=== PATIENT | female | born 1950 | race African-American/Black ===

== ENCOUNTER 2017-05-30 23:24 | Emergency (ER) | payer MEDICARE, OTHER ==
[2017-05-31 04:11] LABS: ANION GAP 14 (5-19); BLOOD UREA NITROGEN 34 mg/dL (7-20); CALCIUM 8.5 mg/dL (8.4-10.2); CARBON DIOXIDE 28 mmol/L (22-30); CHLORIDE 102 mmol/L (98-107); CREATININE RESULT 1.91 mg/dL (0.52-1.25); GLUCOSE 166 mg/dL (75-110); POTASSIUM 3.1 mmol/L (3.6-5.0); SODIUM 143.5 mmol/L (137-145)
--- NOTE | 2017-05-31 05:02 | RADIOLOGY REPORT (SQ) ---
EXAM DESCRIPTION: ANKLE RIGHT COMPLETE COMPLETED DATE/TIME: 05/31/2017 4:28 am REASON FOR STUDY: swelling and pain COMPARISON: None. NUMBER OF VIEWS: Three views. TECHNIQUE: AP, lateral, and oblique radiographic images acquired of the right ankle. LIMITATIONS: None. FINDINGS: MINERALIZATION: Normal. BONES: No acute fracture or dislocation. No worrisome bone lesions. Moderate calcaneal enthesophyte s. JOINTS: Moderate chondrocalcinosis of the lateral malleolar joint. SOFT TISSUES: Mild diffuse swelling. OTHER: No other significant finding. IMPRESSION: Mild diffuse swelling. Moderate chondrocalcinosis. Moderate calcaneal enthesophytes. TECHNICAL DOCUMENTATION: JOB ID: [id number] [employer]- All Rights Reserved
--- NOTE | 2017-05-31 05:05 | RADIOLOGY REPORT (SQ) ---
EXAM DESCRIPTION: FOOT RIGHT COMPLETE COMPLETED DATE/TIME: 05/31/2017 4:40 am REASON FOR STUDY: swelling and pain COMPARISON: None. NUMBER OF VIEWS: Three views. TECHNIQUE: AP, lateral and oblique radiographic images acquired of the right foot. LIMITATIONS: None. FINDINGS: MINERALIZATION: Bony demineralization. BONES: No acute fracture or dislocation. No worrisome bone lesions. Tripartite tibial sesamoid. Mo derate calcaneal enthesophytes. Mild osteoarthritis of the midfoot. Mild osteoarthritis of the [place] joint. Small likely developmental deformity at the base of the right 3rd metatarsus. JOINTS: No effusions. SOFT TISSUES: Mild diffuse swelling. No foreign body. OTHER: No other significant finding. IMPRESSION: Mild swelling. Mild -moderate osteoarthritis. TECHNICAL DOCUMENTATION: JOB ID: [id number] [employer]- All Rights Reserved
[2017-05-31] MEDS ORDERED: ONDANSETRON 4 MG TAB.RAPDIS PO ONE (05:26)
[2017-05-31] MEDS ORDERED: OXYCODONE-ACETAMINOPHEN 5-325 MG TABLET PO ONE (05:26)
--- NOTE | 2017-05-31 05:31 | ER Document Report ---
ED Extremity Problem, Lower - General Chief Complaint: Ankle Swelling Stated Complaint: LEG PAIN Time Seen by Provider: 05/31/17 03:45 Notes: Patient is a 66-year-old female who comes emergency department for chief complaint of right ankle swelling and pain. She states she can walk on it but with some difficulty. She states that she has had these symptoms before, she was told it was gout. She was given an anti-inflammatory and hydrocodone at the end of last month, she states that hydrocodone makes her feel weird and she is not taking it, she took the anti-inflammatory and symptoms resolved but then they returned about 2 days ago. She denies any other symptoms including fever. She denies injury to the area. She states she has been told that she has gout and she thinks this is a gout flare. TRAVEL OUTSIDE OF THE [place] IN LAST 30 DAYS: No - Related Data Allergies/Adverse Reactions: Penicillins Allergy (Mild, Verified 05/31/17 00:00) Hives codeine [Codeine] Allergy (Verified 05/31/17 00:00) Head Tightness Past Medical History - General Information source: Patient - Social History Smoking Status: Never Smoker Chew tobacco use (# tins/day): No Frequency of alcohol use: Rare Drug Abuse: None Lives with: Family Family History: CAD, DM, Hyperlipidemia, Hypertension, Thyroid Disfunction Patient has suicidal ideation: No Patient has homicidal ideation: No - Past Medical History Cardiac Medical History: Reports: Hx Coronary Artery Disease, Hx Hypertension Denies: Hx Heart Attack Pulmonary Medical History: Reports: Hx Bronchitis, Hx Pneumonia, Hx Tuberculosis Denies: Hx Asthma, Hx COPD Neurological Medical History: Reports: Hx Seizures. Denies: Hx Cerebrovascular Accident Renal/ Medical History: Denies: Hx Peritoneal Dialysis Musculoskeltal Medical History: Reports Hx Arthritis Psychiatric Medical History: Reports: Hx Anxiety Past Surgical History: Reports: Hx Adenoidectomy, Hx Hysterectomy, Hx Thyroid Surgery - and thymus, Hx Tonsillectomy - adenoid. Denies: Hx Pacemaker - Immunizations Immunizations up to date: Yes Hx Diphtheria, Pertussis, Tetanus Vaccination: Yes Review of Systems - Review of Systems Constitutional: No symptoms reported EENT: No symptoms reported Cardiovascular: No symptoms reported Respiratory: No symptoms reported Gastrointestinal: No symptoms reported Genitourinary: No symptoms reported Female Genitourinary: No symptoms reported Musculoskeletal: See HPI Skin: No symptoms reported Hematologic/Lymphatic: No symptoms reported Neurological/Psychological: No symptoms reported Physical Exam - Vital signs Vitals: Temp Pulse Resp BP Pulse Ox 99 F 80 18 133/78 H 96 05/30/17 23:59 05/30/17 23:59 05/30/17 23:59 05/30/17 23:59 05/30/17 23:59 Interpretation: Normal - General General appearance: Appears well, Alert - HEENT Head: Normocephalic, Atraumatic Eyes: Normal Pupils: PERRL - Respiratory Respiratory status: No respiratory distress Chest status: Nontender Breath sounds: Normal Chest palpation: Normal - Cardiovascular Rhythm: Regular Heart sounds: Normal auscultation Murmur: No - Abdominal Inspection: Normal Distension: No distension Bowel sounds: Normal Tenderness: Nontender Organomegaly: No organomegaly - Back Back: Normal, Nontender - Extremities General upper extremity: Normal inspection, Nontender, Normal color, Normal ROM , Normal temperature General lower extremity: Other - There is some soft tissue swelling around the lateral malleolus and dorsal aspect of the right foot. No erythema, abnormal heat, or severe tenderness to the area. Patient can bear weight on the foot. Normal distal neurovascular exam. Normal lower extremity exam otherwise. - Neurological Neuro grossly intact: Yes Cognition: Normal Orientation: AAOx4 [place] Coma Scale Eye Opening: Spontaneous Say Coma Scale Verbal: Oriented [place] Coma Scale Motor: Obeys Commands Say Coma Scale Total: 15 Speech: Normal Motor strength normal: LUE, RUE, LLE, RLE Sensory: Normal - Psychological Associated symptoms: Normal affect, Normal mood - Skin Skin Temperature: Warm Skin Moisture: Dry Skin Color: Normal Course - Re-evaluation Re-evalutation: Laboratory workup does not suggest an acute gouty flare, uric acid is actually elevated slightly. BMP unfortunately shows low potassium and creatinine that is elevated at 1.91. I suspect this is from patient's recent anti-inflammatory use. Patient was requesting additional anti-inflammatory medication, I explained that I will provide her with pain medication but she cannot take anti- inflammatory medications now, she needs to drink plenty of fluids and have her kidney function rechecked in a close follow-up. Her examination does not suggest gout, the area is not hot or red, it is swollen but it appears to be from arthritis. X-ray imaging supportive of this. Provided with reports, recommendations, orthopedic referral, follow-up recommendations and return precautions. Patient states understanding and agreement. - Vital Signs Vital signs: Temp Pulse Resp BP Pulse Ox 98.7 F 89 18 136/84 H 93 05/31/17 05:57 05/31/17 05:57 05/31/17 05:57 05/31/17 05:57 05/31/17 05:47 - Laboratory Result Diagrams: 05/31/17 01:40 Laboratory results interpreted by me: 05/31/17 05/31/17 01:40 01:40 Potassium 3.1 L BUN 34 H Creatinine 1.91 H Est GFR ( Amer) 32 L Est GFR (Non-Af Amer) 26 L Glucose 166 H Uric Acid 9.0 H Discharge - Discharge Clinical Impression: Right ankle swelling Condition: Stable Disposition: HOME, SELF-CARE Additional Instructions: Your imaging shows degenerative changes. Ice and elevate your foot, take the pain medication as prescribed. Take the stool softener if you take the pain medication to avoid constipation. You may need to be evaluated and treated by orthopedics, see referral. See the reports given today. Your kidney functioning is elevated. Stop all anti-inflammatories for now (i.e. ibuprofen), please have this rechecked in the next 3-7 days with your primary care provider. Your creatinine today is 1.91, your GFR is 32. Your potassium is also slightly low. This could be from your medications, possibly from diet. Increase potassium in your diet and have this rechecked as well. Return to the ED for any concerning or worsening symptoms -increased swelling, fever, or any other concerning symptoms. Prescriptions: Morphine Sulfate [Morphine Ir 15 Mg Tablet] 15 mg PO Q4HP PRN #15 tablet PRN Reason: Docusate Sodium [Colace 100 mg Capsule] 100 mg PO DAILY #30 capsule Referrals: DANIA LOERA MD [ACTIVE STAFF] - Follow up as needed
[2017-05-31 05:59] VITALS: BP 136/84
== END 2017-05-31 05:58 | disposition home or self-care (01) ==
LOC: ER 23:24
DX: M25.471 Effusion, right ankle (principal); I25.10 Atherosclerotic heart disease of native coronary artery without angina pectoris; I10 Essential (primary) hypertension; Z90.710 Acquired absence of both cervix and uterus; Z88.0 Allergy status to penicillin; Z88.6 Allergy status to analgesic agent
CPT/HCPCS: 99284; 36415; 84550; 80048; 73610; 73630; A9270 ×2; S0119

== ENCOUNTER → 2017-08-11 | Outpatient (CLI) | payer MEDICARE, OTHER ==
[2017-08-11 12:20] LABS: ABSOLUTE EOSINOPHILS # (AUTO) 0.1 10^3/uL (0.0-0.6); ABSOLUTE LYMPHOCYTES (AUTO) 1.8 10^3/uL (0.5-4.7); ABSOLUTE MONOCYTES (AUTO) 0.3 10^3/uL (0.1-1.4); ABSOLUTE NEUT (AUTO) 2.1 10^3/uL (1.7-8.2); BASOPHILS % (AUTO) 0.7 % (0-2); EOSINOPHILS % (AUTO) 2.4 % (0-6); HEMATOCRIT 36.3 % (36.0-47.0); HEMOGLOBIN 12.5 g/dL (12.0-15.5); HGB HCT DIFFERENCE 1.2; LYMPHOCYTES % (AUTO) 41.6 % (13-45); MEAN CORPUSCULAR HEMOGLOBIN 28.7 pg (27.0-33.4); MEAN CORPUSCULAR HGB CONC 34.3 g/dL (32.0-36.0); MEAN CORPUSCULAR VOLUME 84 fl (80-97); MONOCYTES % (AUTO) 7.3 % (3-13); RED BLOOD COUNT 4.34 10^6/uL (3.72-5.28); RED CELL DISTRIBUTION WIDTH 14.9 % (11.5-14.0); WHITE BLOOD COUNT 4.3 10^3/uL (4.0-10.5)
[2017-08-11 12:30] LABS: APPEARANCE,URINE CLEAR; BILIRUBIN,URINE NEGATIVE (NEGATIVE); GLUCOSE, URINE NEGATIVE (NEGATIVE); KETONES,URINE NEGATIVE (NEGATIVE); LEUKOCYTE ESTERASE,URINE NEGATIVE (NEGATIVE); NITRITE,URINE NEGATIVE (NEGATIVE); PROTEIN,URINE NEGATIVE (NEGATIVE); URINE SPECIFIC GRAVITY 1.009; UROBILINOGEN,URINE NEGATIVE mg/dL (<2.0)
[2017-08-11 12:40] LABS: HYALINE CASTS, URINE 0-1 /LPF
[2017-08-11 12:43] LABS: ALBUMIN 4.2 g/dL (3.5-5.0); ANION GAP 11 (5-19); BLOOD UREA NITROGEN 21 mg/dL (7-20); CALCIUM 9.2 mg/dL (8.4-10.2); CARBON DIOXIDE 30 mmol/L (22-30); CHLORIDE 100 mmol/L (98-107); CHOLESTEROL 218.33 mg/dL (0-200); CREATININE RESULT 1.18 mg/dL (0.52-1.25); Direct HDL 37 mg/dL (>40); GLUCOSE 95 mg/dL (75-110); PHOSPHORUS 4.1 mg/dL (2.5-4.5); POTASSIUM 3.6 mmol/L (3.6-5.0); SODIUM 140.6 mmol/L (137-145); TRIGLYCERIDES 386 mg/dL (<150); URIC ACID 8.8 mg/dL (2.5-7.5)
[2017-08-11 12:50] LABS: URINE CREATININE 73.4 mg/dL (15-278); URINE PROTEIN 8.9 mg/dL (<12)
[2017-08-11 12:53] LABS: DIRECT LDL 30 mg/dL (<100)
[2017-08-11 12:57] LABS: VLDL CHOLESTEROL 77.2 mg/dL (10-31)
== END ==
LOC: OD 10:35
PROVIDERS: ATTEND Internal Medicine Nephrology
DX: N17.9 Acute kidney failure, unspecified (principal); N18.9 Chronic kidney disease, unspecified; E55.9 Vitamin D deficiency, unspecified
CPT/HCPCS: 36415; 80048; 80061; 81001; 82040; 82306; 82570; 83970; 84100; 84156; 84550; 85025

== ENCOUNTER → 2018-01-01 | Outpatient (CLI) | payer MEDICARE, OTHER ==
[2018-01-01 13:53] LABS: ANION GAP 15 (5-19); BLOOD UREA NITROGEN 24 mg/dL (7-20); CALCIUM 8.4 mg/dL (8.4-10.2); CARBON DIOXIDE 29 mmol/L (22-30); CHLORIDE 99 mmol/L (98-107); GLUCOSE 146 mg/dL (75-110); POTASSIUM 3.2 mmol/L (3.6-5.0); SODIUM 143.4 mmol/L (137-145)
== END ==
LOC: OD 12:45
PROVIDERS: ATTEND Internal Medicine Nephrology
DX: N18.3 Chronic kidney disease, stage 3 (moderate) (principal)
CPT/HCPCS: 36415; 80048

== ENCOUNTER 2018-04-09 20:33 | Emergency (ER) | payer MEDICARE, OTHER ==
--- NOTE | 2018-04-09 21:12 | ER Document Report ---
ED General - General Chief Complaint: Weakness Stated Complaint: ELBOW PAIN/WEAKNESS Time Seen by Provider: 04/09/18 21:01 Notes: Patient is a 67-year-old female comes emergency department for chief complaint of about 1.5 weeks of intermittent symptoms of swelling in her legs and feet on both sides, tingling sensation in her hands, she states she had a tingling sensation in her lips and throat earlier but this resolved. She also reports ongoing pains in her right elbow that she wants an x-ray for. She is uncertain of injury. She denies fever or chills, shortness of breath, chest pain, dizziness, passing out. She denies any current symptoms except for swelling in her lower extremities and pain in her right elbow. She just had medication adjustments were she was placed on Lasix and spironolactone for lower extremity swelling, she also was placed on amlodipine, she was taken off of HCTZ, she continues to take valsartan. TRAVEL OUTSIDE OF THE [place] IN LAST 30 DAYS: No - Related Data Allergies/Adverse Reactions: Penicillins Allergy (Mild, Verified 05/31/17 00:00) Hives codeine [Codeine] Allergy (Verified 05/31/17 00:00) Head Tightness Past Medical History - General Information source: Patient - Social History Smoking Status: Never Smoker Frequency of alcohol use: None Drug Abuse: None Lives with: Family Family History: CAD, DM, Hyperlipidemia, Hypertension, Thyroid Disfunction - Past Medical History Cardiac Medical History: Reports: Hx Coronary Artery Disease, Hx Hypertension Denies: Hx Heart Attack Pulmonary Medical History: Reports: Hx Bronchitis, Hx Pneumonia, Hx Tuberculosis Denies: Hx Asthma, Hx COPD Neurological Medical History: Reports: Hx Seizures. Denies: Hx Cerebrovascular Accident Renal/ Medical History: Denies: Hx Peritoneal Dialysis Musculoskeletal Medical History: Reports Hx Arthritis Psychiatric Medical History: Reports: Hx Anxiety Past Surgical History: Reports: Hx Adenoidectomy, Hx Hysterectomy, Hx Thyroid Surgery - and thymus, Hx Tonsillectomy - adenoid. Denies: Hx Pacemaker - Immunizations Immunizations up to date: Yes Hx Diphtheria, Pertussis, Tetanus Vaccination: Yes Review of Systems - Review of Systems Constitutional: No symptoms reported EENT: No symptoms reported Cardiovascular: See HPI Respiratory: No symptoms reported Gastrointestinal: No symptoms reported Genitourinary: No symptoms reported Female Genitourinary: No symptoms reported Musculoskeletal: See HPI Skin: No symptoms reported Hematologic/Lymphatic: No symptoms reported Neurological/Psychological: No symptoms reported Physical Exam - Vital signs Vitals: Temp Pulse Resp BP Pulse Ox 98.5 F 70 16 175/92 H 96 04/09/18 20:43 04/09/18 20:43 04/09/18 20:43 04/09/18 20:43 04/09/18 20:43 - Notes Notes: GENERAL: Alert, interacts well. No acute distress. HEAD: Normocephalic, atraumatic. EYES: Pupils equal, round, and reactive to light. Extraocular movements intact. ENT: Oral mucosa moist, tongue midline. NECK: Full range of motion. Supple. Trachea midline. LUNGS: Clear to auscultation bilaterally, no wheezes, rales, or rhonchi. No respiratory distress. HEART: Regular rate and rhythm. No murmur ABDOMEN: Soft, non-tender. Non-distended. Bowel sounds present in all 4 quadrants. EXTREMITIES: Moves all 4 extremities spontaneously. Mild tenderness with palpation over the right medial elbow, no swelling, erythema, or other abnormality noted. Full range of motion of the elbow. Normal distal neurovascular exam. Bilateral lower extremity edema at the distal tibias and over the dorsum of both feet. Normal lower extremity exam otherwise. BACK: no cervical, thoracic, lumbar midline tenderness. No saddle anesthesia, normal distal neurovascular exam. NEUROLOGICAL: Alert and oriented x3. Normal speech. [cranial nerves II through XII grossly intact]. PSYCH: Normal affect, normal mood. SKIN: Warm, dry, normal turgor. No rashes or lesions noted. Course - Re-evaluation Re-evalutation: Patient is hypertensive but does not have a headache, chest pain, or any other complaints at this time other than right elbow pain in and swollen lower extremities. There is some peripheral edema but no severe swelling, clear lungs on auscultation, no respiratory symptoms. Suspect this could be secondary to amlodipine but this is not definite. CBC generally unremarkable, chemistry shows low magnesium and low potassium, given supplementation of magnesium and small dose of potassium. X-ray of the elbow unremarkable, examination consistent with medial epicondylitis, no evidence of septic joint or concerning finding with benign exam. I discussed at length patient's blood pressure medications, symptoms, recommendations. She requests she be given details on this. She was provided with this along with follow-up instructions and return precautions. Patient and family state understanding and agreement. - Vital Signs Vital signs: Temp Pulse Resp BP Pulse Ox 98.5 F 72 18 162/76 H 98 04/09/18 20:43 04/10/18 01:57 04/10/18 01:57 04/10/18 01:57 04/10/18 01:57 - Laboratory Result Diagrams: 04/09/18 21:30 04/09/18 21:30 Laboratory results interpreted by me: 04/09/18 04/09/18 21:30 21:30 Hct 34.8 L RDW 15.1 H Potassium 3.3 L BUN 21 H Est GFR ( Amer) 52 L Est GFR (Non-Af Amer) 43 L Magnesium 1.5 L Discharge - Discharge Clinical Impression: Generalized weakness, Paresthesias, Right elbow pain Condition: Stable Disposition: HOME, SELF-CARE Additional Instructions: Your low magnesium and potassium were replaced. Your elbow x-ray is normal, you appear to have medial epicondylitis (strain, this can frequently resolve with ice, rest, time; Tylenol for pain). Your lower extremity swelling might be worsened because of amlodipine, this is a common side effect. Your electrolytes need to be rechecked soon. Discuss adjusting your medications with your provider, call them tomorrow for close follow-up. If your amlodipine is stopped you will need to have your other medications increased, possibly your valsartan, this is between you and your provider. If you no longer have the amlodipine contributing to lower extremity swelling you might not need the diuretics either. In addition to this I recommend that he wear compression stockings, especially at night, these can be found in any local drugstore. Return to the emergency department for any concerning symptoms including difficulty breathing, severe swelling, fever 100.4 greater, or any other concerning symptoms. Referrals: MARIAMA PETERSEN MD [HONORARY] - Follow up as needed
[2018-04-09 21:50] LABS: ABSOLUTE EOSINOPHILS # (AUTO) 0.1 10^3/uL (0.0-0.6); ABSOLUTE MONOCYTES (AUTO) 0.5 10^3/uL (0.1-1.4); ABSOLUTE NEUT (AUTO) 2.1 10^3/uL (1.7-8.2); BASOPHILS % (AUTO) 0.5 % (0-2); EOSINOPHILS % (AUTO) 1.9 % (0-6); HEMATOCRIT 34.8 % (36.0-47.0); HEMOGLOBIN 12.2 g/dL (12.0-15.5); MEAN CORPUSCULAR HEMOGLOBIN 29.2 pg (27.0-33.4); MEAN CORPUSCULAR VOLUME 84 fl (80-97); MONOCYTES % (AUTO) 11.1 % (3-13); PLATELET COUNT 182 10^3/uL (150-450); RED BLOOD COUNT 4.17 10^6/uL (3.72-5.28); RED CELL DISTRIBUTION WIDTH 15.1 % (11.5-14.0); SEGMENTED NEUTROPHILS % (AUTO) 44.5 % (42-78); TOTAL CELLS COUNTED % (AUTO) 100 %; WHITE BLOOD COUNT 4.7 10^3/uL (4.0-10.5)
[2018-04-09 22:00] LABS: ALANINE AMINOTRANSFERASE 24 U/L (9-52); ALBUMIN 4.1 g/dL (3.5-5.0); ALKALINE PHOSPHATASE 49 U/L (38-126); ANION GAP 14 (5-19); ASPARTATE AMINO TRANSFERASE 20 U/L (14-36); BILIRUBIN,DIRECT 0.3 mg/dL (0.0-0.4); BILIRUBIN,TOTAL 0.4 mg/dL (0.2-1.3); BLOOD UREA NITROGEN 21 mg/dL (7-20); CALCIUM 8.5 mg/dL (8.4-10.2); CARBON DIOXIDE 27 mmol/L (22-30); CHLORIDE 104 mmol/L (98-107); GLUCOSE 108 mg/dL (75-110); POTASSIUM 3.3 mmol/L (3.6-5.0); SODIUM 144.9 mmol/L (137-145); TOTAL PROTEIN 7.3 g/dL (6.3-8.2)
[2018-04-09] MEDS ORDERED: POTASSIUM CHLORIDE 10 MEQ CAPSULE.ER PO ONE (22:11)
--- NOTE | 2018-04-09 22:13 | RADIOLOGY REPORT (SQ) ---
EXAM DESCRIPTION: ELBOW RIGHT OVER 2 VIEWS COMPLETED DATE/TIME: 04/09/2018 9:23 pm REASON FOR STUDY: ? injury, sharp pains it 2 weeks days COMPARISON: None. NUMBER OF VIEWS: Four views. TECHNIQUE: AP, lateral, and both oblique radiographic images acquired of the right elbow. LIMITATIONS: None. FINDINGS: MINERALIZATION: Normal. BONES: No acute fracture or dislocation. No worrisome bone lesions. Mild osteophytes. JOINT: No effusion. SOFT TISSUES: No soft tissue swelling. No foreign body. OTHER: No other significant finding. IMPRESSION: No acute fracture. No joint effusion. TECHNICAL DOCUMENTATION: JOB ID: [id number] [employer]- All Rights Reserved Reading location - IP/workstation name: [email or web address]
[2018-04-09] MEDS: MAGNESIUM SULFATE/D5W 1 GM/100 ML RTUPB IV SCH ×2 (22:38→22:41)
[2018-04-09 22:39] LABS: APPEARANCE,URINE CLEAR; BILIRUBIN,URINE NEGATIVE (NEGATIVE); COLOR,URINE STRAW; GLUCOSE, URINE NEGATIVE (NEGATIVE); KETONES,URINE NEGATIVE (NEGATIVE); LEUKOCYTE ESTERASE,URINE NEGATIVE (NEGATIVE); NITRITE,URINE NEGATIVE (NEGATIVE); PROTEIN,URINE NEGATIVE (NEGATIVE); URINE SPECIFIC GRAVITY 1.009; UROBILINOGEN,URINE NEGATIVE mg/dL (<2.0)
[2018-04-10 01:59] VITALS: BP 162/76
== END 2018-04-10 01:58 | disposition home or self-care (01) ==
LOC: ER 20:33
DX: R53.1 Weakness (principal); M25.521 Pain in right elbow; R60.0 Localized edema; R20.2 Paresthesia of skin; I25.10 Atherosclerotic heart disease of native coronary artery without angina pectoris; I10 Essential (primary) hypertension; Z79.899 Other long term (current) drug therapy; Z88.0 Allergy status to penicillin; Z88.5 Allergy status to narcotic agent
CPT/HCPCS: 99285; 96365; 36415; 83735; 85025; 80053; 81001; 73080; J3475; A9270

== ENCOUNTER → 2018-05-16 | Outpatient (CLI) | payer MEDICARE, OTHER ==
[2018-05-16 13:39] LABS: APPEARANCE,URINE CLEAR; BILIRUBIN,URINE NEGATIVE (NEGATIVE); COLOR,URINE YELLOW; GLUCOSE, URINE NEGATIVE (NEGATIVE); KETONES,URINE NEGATIVE (NEGATIVE); LEUKOCYTE ESTERASE,URINE NEGATIVE (NEGATIVE); NITRITE,URINE NEGATIVE (NEGATIVE); PROTEIN,URINE NEGATIVE (NEGATIVE); URINE SPECIFIC GRAVITY 1.015; UROBILINOGEN,URINE NEGATIVE mg/dL (<2.0)
[2018-05-16 13:53] LABS: ABSOLUTE EOSINOPHILS # (AUTO) 0.1 10^3/uL (0.0-0.6); ABSOLUTE LYMPHOCYTES (AUTO) 1.6 10^3/uL (0.5-4.7); ABSOLUTE MONOCYTES (AUTO) 0.3 10^3/uL (0.1-1.4); ABSOLUTE NEUT (AUTO) 2.3 10^3/uL (1.7-8.2); BASOPHILS % (AUTO) 0.7 % (0-2); EOSINOPHILS % (AUTO) 2.1 % (0-6); HEMATOCRIT 35.5 % (36.0-47.0); HEMOGLOBIN 11.9 g/dL (12.0-15.5); LYMPHOCYTES % (AUTO) 36.4 % (13-45); MEAN CORPUSCULAR HEMOGLOBIN 27.9 pg (27.0-33.4); MEAN CORPUSCULAR HGB CONC 33.5 g/dL (32.0-36.0); MEAN CORPUSCULAR VOLUME 83 fl (80-97); MONOCYTES % (AUTO) 7.3 % (3-13); PLATELET COUNT 224 10^3/uL (150-450); RED BLOOD COUNT 4.26 10^6/uL (3.72-5.28); RED CELL DISTRIBUTION WIDTH 14.5 % (11.5-14.0); SEGMENTED NEUTROPHILS % (AUTO) 53.5 % (42-78); TOTAL CELLS COUNTED % (AUTO) 100 %; WHITE BLOOD COUNT 4.3 10^3/uL (4.0-10.5)
[2018-05-16 13:59] LABS: ALBUMIN 3.9 g/dL (3.5-5.0); ANION GAP 12 (5-19); BLOOD UREA NITROGEN 15 mg/dL (7-20); CALCIUM 8.5 mg/dL (8.4-10.2); CARBON DIOXIDE 25 mmol/L (22-30); CHLORIDE 103 mmol/L (98-107); GLUCOSE 100 mg/dL (75-110); POTASSIUM 4.2 mmol/L (3.6-5.0); SODIUM 139.5 mmol/L (137-145)
[2018-05-17 10:38] LABS: MICROALBUMIN URINE 71.6 ug/mL (Not Estab.)
== END ==
LOC: OD 12:40
PROVIDERS: ATTEND Internal Medicine Nephrology
DX: N18.3 Chronic kidney disease, stage 3 (moderate) (principal); I12.9 Hypertensive chronic kidney disease with stage 1 through stage 4 chronic kidney disease, or unspecified chronic kidney disease; E55.9 Vitamin D deficiency, unspecified
CPT/HCPCS: 36415; 80048; 81001; 82040; 82043; 82306; 82570; 83970; 84100; 85025

== ENCOUNTER 2018-06-26 00:19 | Emergency (ER) | payer MEDICARE, OTHER ==
--- NOTE | 2018-06-26 01:46 | ER Document Report ---
HPI - HPI Patient complains to provider of: [place] a fluttering in her right ear like that was a bug in her ear Onset: Just prior to arrival Onset/Duration: Sudden Quality of pain: No pain Severity: None Pain Level: Denies Associated Symptoms: Other - Fluttering in her right ear Exacerbated by: Denies Relieved by: Denies Similar symptoms previously: No Recently seen / treated by doctor: Yes - Recently saw eye doctor was told her blood pressure was high - ROS ROS below otherwise negative: Yes - CONSTITUTIONAL Constitutional: DENIES: Fever, Chills - NEURO Neurology: DENIES: Headache, Weakness, Vision blurred, Dizzinesss / Vertigo - CARDIOVASCULAR Cardiovascular: DENIES: Chest pain - RESPIRATORY Respiratory: DENIES: Trouble Breathing, Coughing - GASTROINTESTINAL Gastrointestinal: DENIES: Abdominal Pain, Nausea, Patient vomiting, Diarrhea, Constipation, Black / Bloody Stools - URINARY Urinary: DENIES: Dysuria, Urgency, Frequency - REPRODUCTIVE Reproductive: DENIES: : - MUSCULOSKELETAL Musculoskeletal: DENIES: Extremity pain, Back Pain, Neck Pain, Swelling - DERM Skin Color: Normal Skin Problems: None Past Medical History - General Information source: Patient - Social History Smoking Status: Never Smoker Cigarette use (# per day): No Chew tobacco use (# tins/day): No Smoking Education Provided: No Frequency of alcohol use: Rare Drug Abuse: None Occupation: disabled Lives with: Family Family History: CAD, DM, Hyperlipidemia, Hypertension, Thyroid Disfunction Patient has suicidal ideation: No Patient has homicidal ideation: No - Past Medical History Cardiac Medical History: Reports: Hx Coronary Artery Disease, Hx Hypertension Pulmonary Medical History: Reports: Hx Bronchitis, Hx Pneumonia, Hx Tuberculosis EENT Medical History: Reports: None Neurological Medical History: Reports: Hx Seizures - Psychogenic seizures Endocrine Medical History: Reports: Hx Hypothyroidism Renal/ Medical History: Reports: Other - Ovarian tumor that she states was not cancer Malignancy Medical History: Reports: None GI Medical History: Reports: None Musculoskeletal Medical History: Reports Hx Arthritis Skin Medical History: Reports None Psychiatric Medical History: Reports: Hx Anxiety Traumatic Medical History: Reports: None Infectious Medical History: Reports: None Past Surgical History: Reports: Hx Adenoidectomy, Hx Gynecologic Surgery - Right ovary removed due to tumors then complete hysterectomy due to tumors, Hx Hysterectomy, Hx Thyroid Surgery - and thymus, Hx Tonsillectomy - adenoid, Hx Umbilical Hernia - Immunizations Immunizations up to date: Yes Hx Diphtheria, Pertussis, Tetanus Vaccination: Yes Vertical Provider Document - CONSTITUTIONAL Agree With Documented VS: Yes - Blood pressure elevated 198/102 manually. Patient is on blood pressure med Exam Limitations: No Limitations General Appearance: WD/WN, No Apparent Distress - INFECTION CONTROL TRAVEL OUTSIDE OF THE [place] IN LAST 30 DAYS: No - HEENT HEENT: Atraumatic, Normal ENT Exam, Normocephalic Notes: Head feeling of a bug in her ear but no bug was in her ear - NECK Neck: Normal Inspection, Other - Scar from thyroidectomy - RESPIRATORY Respiratory: Breath Sounds Normal, No Respiratory Distress - CARDIOVASCULAR Cardiovascular: Regular Rate, Regular Rhythm - GI/ABDOMEN Gastrointestinal: Abdomen Soft, Abdomen Non-Tender, No Organomegaly, Normal Bowel Sounds - BACK Back: Normal Inspection - MUSCULOSKELETAL/EXTREMETIES Musculoskeletal/Extremeties: MAEW, FROM, Non-Tender - NEURO Level of Consciousness: Awake, Alert, Appropriate Course - Re-evaluation Re-evalutation: 06/26/18 02:00 Patient states she feels a fluttering in her right ear. There is no bugs in her ear. 2 drops of alcohol were placed in her ear which patient states relieved the fluttering. Patient does have a blood pressure of 198/102 manually. She states she has high blood pressure and is on blood pressure medicine and Lasix. She states she went to her eye doctor recently and they told her her blood pressure was very high and she needed to follow-up with her primary doctor. She states she has been trying to get ahold to her doctor for the last week. She has been instructed to try to call the doctor tomorrow if she could not get ahold to the doctor to go by the office and tell them she needs a follow-up appointment as soon as possible. Patient did states she took her blood pressure medicine tonight. Discharge - Discharge Clinical Impression: sensation of fluttering in ear Condition: Stable Disposition: HOME, SELF-CARE Additional Instructions: You state you felt like there was a bug in your ear fluttering There is no blood in your ear at this time. I have put 2 drops of alcohol into your ear to help with the sensation. You state you no longer have the fluttering in your ear. High Blood Pressure When your blood pressure was taken today it was elevated. Today's reading was___198/102 . Pre-hypertension/Hypertension: The patient has been informed that they may have pre-hypertension or Hypertension based on a blood pressure reading in the emergency department. I recommend that the patient call the primary care provider listed on their discharge instructions or a physician of their choice this wee to arrange follow up for further evaluation of possible pre- hypertension or Hypertension. Sometimes, stress or illness causes a temporary elevation of your blood pressure. We suggest that you get your blood pressure measured three more times during the next few days to see if this is more than a temporary abnormality. If your blood pressure is greater than 150/90 on each occasion, you must have treatment. Some simple things you can do to help are: If you have blood pressure medicine but aren't using it regularly, start taking it again. Get some aerobic exercise for at least 20 minutes on a daily basis. (See your doctor before beginning a new exercise program.) Eat a low-fat diet. Lose excess weight. Avoid salty foods and avoid adding salt to any of the foods you eat. Avoid diet pills, decongestants, "energizing" herbs, and other medicines that elevate blood pressure. If left untreated, hypertension greatly enhances your risk for developing heart disease and strokes. Please don't ignore this problem. FOLLOW-UP CARE: If you have been referred to a physician for follow-up care, call the physician s office for an appointment as you were instructed or within the next two days. If you experience worsening or a significant change in your symptoms, notify the physician immediately or return to the Emergency Department at any time for re-evaluation. Forms: Elevated Blood Pressure Referrals: NANCY BOWERS MD [ACTIVE STAFF] - Follow up as needed
[2018-06-26 01:49] VITALS: BP 198/102
== END 2018-06-26 01:55 | disposition home or self-care (01) ==
LOC: ER 00:19
DX: H93.8X1 Other specified disorders of right ear (principal); I25.10 Atherosclerotic heart disease of native coronary artery without angina pectoris; I10 Essential (primary) hypertension; Z79.899 Other long term (current) drug therapy
CPT/HCPCS: 99282

== ENCOUNTER 2018-07-01 22:46 | Emergency (ER) | payer MEDICARE, OTHER ==
[2018-07-01] MEDS ORDERED: PREDNISONE 20 MG TABLET PO ONE (23:55)
--- NOTE | 2018-07-01 23:55 | ER Document Report ---
HPI - HPI Patient complains to provider of: left foot pain Pain Level: 4 Context: Patient is a 67-year-old female presenting to the emergency department complaining of left ankle pain. Patient states is a history of gout and feels as though this is exactly like the last gout attack she had. Patient denies any trauma to that ankle. Patient states she took her allopurinol Monday which she states has not been helping. Patient also states she took colchicine on Monday which she also states is not helping. Patient states the last time she was in the emergency room for any gout flare they gave her steroids which helped a lot. Patient states that she knows her blood pressure is elevated. Patient states she has an appointment with her primary care doctor on 07/05 to address her hypertension. Patient denies headache, chest pain, weakness, dizziness. Past medical history: Gout, hypertension, hypothyroid, hyperlipidemia Medications: Losartan, Lasix, levothyroxine, clonidine, potassium, acyclovir, colchicine, allopurinol Allergies: Penicillin, codeine - CONSTITUTIONAL Constitutional: DENIES: Fever, Chills - REPRODUCTIVE Reproductive: DENIES: : - MUSCULOSKELETAL Musculoskeletal: REPORTS: Extremity pain - L ankle Past Medical History - General Information source: Patient - Social History Smoking Status: Unknown if Ever Smoked Chew tobacco use (# tins/day): No Frequency of alcohol use: None Drug Abuse: None Lives with: Family Family History: CAD, DM, Hyperlipidemia, Hypertension, Thyroid Disfunction Patient has suicidal ideation: No Patient has homicidal ideation: No - Past Medical History Cardiac Medical History: Reports: Hx Coronary Artery Disease, Hx Hypertension Denies: Hx Heart Attack Pulmonary Medical History: Reports: Hx Bronchitis, Hx Pneumonia, Hx Tuberculosis Denies: Hx Asthma, Hx COPD Neurological Medical History: Reports: Hx Seizures - Psychogenic seizures. Denies: Hx Cerebrovascular Accident Endocrine Medical History: Reports: Hx Hypothyroidism Renal/ Medical History: Denies: Hx Peritoneal Dialysis Musculoskeletal Medical History: Reports Hx Arthritis Psychiatric Medical History: Reports: Hx Anxiety Past Surgical History: Reports: Hx Adenoidectomy, Hx Gynecologic Surgery - Right ovary removed due to tumors then complete hysterectomy due to tumors, Hx Hysterectomy, Hx Thyroid Surgery - and thymus, Hx Tonsillectomy - adenoid, Hx Umbilical Hernia. Denies: Hx Pacemaker - Immunizations Immunizations up to date: Yes Hx Diphtheria, Pertussis, Tetanus Vaccination: Yes Vertical Provider Document - CONSTITUTIONAL Agree With Documented VS: Yes Notes: GENERAL: Alert, interacts well. No acute distress. HEAD: Normocephalic, atraumatic. EYES: Pupils equal, round, and reactive to light. Extraocular movements intact. ENT: Oral mucosa moist, tongue midline. NECK: Full range of motion. Supple. Trachea midline. LUNGS: Clear to auscultation bilaterally, no wheezes, rales, or rhonchi. No respiratory distress. HEART: Regular rate and rhythm. No murmur ABDOMEN: Soft, non-tender. Non-distended. Bowel sounds present in all 4 quadrants. EXTREMITIES: Moves all 4 extremities spontaneously. normal radial and dorsalis pedis pulses bilaterally. Swelling left ankle. Not erythematous, not hot to touch. PMS intact all 4 extremities. BACK: no cervical, thoracic, lumbar midline tenderness. No saddle anesthesia, normal distal neurovascular exam. NEUROLOGICAL: Alert and oriented x3. Normal speech. cranial nerves II through XII grossly intact. PSYCH: Normal affect, normal mood. SKIN: Warm, dry, normal turgor. No rashes or lesions noted. - INFECTION CONTROL TRAVEL OUTSIDE OF THE [place] IN LAST 30 DAYS: No Course - Re-evaluation Re-evalutation: Patient states she has an appointment with a new primary care provider on 2017. Patient states her old primary care provider has . Patient states she has been taking her medications as prescribed. Patient continues to deny headache, weakness, chest pain. It is normal patient is hypertensive in the emergency room, patient states her primary care provider had been changing and adding medications in attempt to lower her blood pressure. Due to patient having kidney disease NSAIDs are not indicated at this time. Will discharge with oral steroids. 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
[2018-07-02 00:10] VITALS: BP 200/110
== END 2018-07-02 00:28 | disposition home or self-care (01) ==
LOC: ER 22:46
DX: M1A.0720 Idiopathic chronic gout, left ankle and foot, without tophus (tophi) (principal); I10 Essential (primary) hypertension; M79.672 Pain in left foot; M25.572 Pain in left ankle and joints of left foot; Z79.899 Other long term (current) drug therapy; I25.10 Atherosclerotic heart disease of native coronary artery without angina pectoris
CPT/HCPCS: 99283; A9270; J7512

== ENCOUNTER → 2018-07-13 | Outpatient (CLI) | payer MEDICARE, OTHER ==
[2018-07-13 10:35] LABS: ABSOLUTE EOSINOPHILS # (AUTO) 0.1 10^3/uL (0.0-0.6); ABSOLUTE LYMPHOCYTES (AUTO) 2.2 10^3/uL (0.5-4.7); ABSOLUTE MONOCYTES (AUTO) 0.6 10^3/uL (0.1-1.4); ABSOLUTE NEUT (AUTO) 2.5 10^3/uL (1.7-8.2); BASOPHILS % (AUTO) 0.7 % (0-2); EOSINOPHILS % (AUTO) 1.7 % (0-6); HEMATOCRIT 36.2 % (36.0-47.0); HEMOGLOBIN 12.4 g/dL (12.0-15.5); LYMPHOCYTES % (AUTO) 41.6 % (13-45); MEAN CORPUSCULAR HEMOGLOBIN 28.8 pg (27.0-33.4); MEAN CORPUSCULAR HGB CONC 34.2 g/dL (32.0-36.0); MEAN CORPUSCULAR VOLUME 84 fl (80-97); MONOCYTES % (AUTO) 10.3 % (3-13); PLATELET COUNT 193 10^3/uL (150-450); RED CELL DISTRIBUTION WIDTH 15.5 % (11.5-14.0); SEGMENTED NEUTROPHILS % (AUTO) 45.7 % (42-78); TOTAL CELLS COUNTED % (AUTO) 100 %; WHITE BLOOD COUNT 5.4 10^3/uL (4.0-10.5)
[2018-07-13 10:43] LABS: APPEARANCE,URINE CLEAR; BILIRUBIN,URINE NEGATIVE (NEGATIVE); COLOR,URINE STRAW; GLUCOSE, URINE NEGATIVE (NEGATIVE); KETONES,URINE NEGATIVE (NEGATIVE); LEUKOCYTE ESTERASE,URINE NEGATIVE (NEGATIVE); NITRITE,URINE NEGATIVE (NEGATIVE); PROTEIN,URINE NEGATIVE (NEGATIVE); URINE SPECIFIC GRAVITY 1.011; UROBILINOGEN,URINE NEGATIVE mg/dL (<2.0)
[2018-07-13 11:00] LABS: ALBUMIN 3.6 g/dL (3.5-5.0); ANION GAP 13 (5-19); BLOOD UREA NITROGEN 25 mg/dL (7-20); CALCIUM 9.1 mg/dL (8.4-10.2); CARBON DIOXIDE 28 mmol/L (22-30); CHLORIDE 98 mmol/L (98-107); GLUCOSE 97 mg/dL (75-110); PHOSPHORUS 5.3 mg/dL (2.5-4.5); POTASSIUM 3.7 mmol/L (3.6-5.0); SODIUM 138.8 mmol/L (137-145)
[2018-07-14 10:37] LABS: CREATININE URINE 79.4 mg/dL (Not Estab.); MICROALBUMIN URINE 18.1 ug/mL (Not Estab.)
== END ==
LOC: OD 09:29
PROVIDERS: ATTEND Internal Medicine Nephrology
DX: I12.9 Hypertensive chronic kidney disease with stage 1 through stage 4 chronic kidney disease, or unspecified chronic kidney disease (principal); N18.3 Chronic kidney disease, stage 3 (moderate); E55.9 Vitamin D deficiency, unspecified
CPT/HCPCS: 36415; 80048; 81001; 82040; 82043; 82306; 82570; 83970; 84100; 85025

== ENCOUNTER 2018-07-15 16:13 | Emergency (ER) | payer MEDICARE, OTHER ==
--- NOTE | 2018-07-15 17:14 | ER Document Report ---
ED Medical Screen (RME) - General Chief Complaint: Blood Pressure Problem Stated Complaint: BLOOD PRESSURE ISSUE Time Seen by Provider: 07/15/18 17:08 Mode of Arrival: Ambulatory Information source: Patient Notes: Patient is a 67-year-old female comes emergency room today complaining of fatigue and weakness. Patient states she has been having excessively high blood pressures and her primary is been working with her on her medications to bring it down. She is recently added chlorthalidone and they have increased her valsartan to 160 mg to twice a day. Patient has been seen in this ER a few times for elevated hypertension issues. She states that she woke up at 3 AM this morning and she was having fatigue that she has not experienced before. She went to [employer] when she came home her daughter took her blood pressure and it was 93/63. She called her primary MD and he told her to come to the ER. Patient denies having any chest pain but states that she did have some back pain earlier this morning with this episode. TRAVEL OUTSIDE OF THE [place] IN LAST 30 DAYS: No - HPI Onset: This morning Onset/Duration: Sudden Quality of pain: No pain Severity: Mild Pain Level: 1 Associated Symptoms: Weakness Exacerbated by: Denies Relieved by: Denies Similar symptoms previously: No Recently seen / treated by doctor: Yes - Related Data Smoking: Non-smoker Frequency of alcohol use: None Drug Abuse: None Allergies/Adverse Reactions: Penicillins Allergy (Mild, Verified 05/31/17 00:00) Hives codeine [Codeine] Allergy (Verified 05/31/17 00:00) Head Tightness Past Medical History - General Information source: Patient - Social History Cigarette use (# per day): No Chew tobacco use (# tins/day): No Frequency of alcohol use: None Drug Abuse: None Lives with: Family Family history: None, Reviewed & Not Pertinent - Past Medical History Cardiac Medical History: Reports: Hx Coronary Artery Disease, Hx Hypertension Denies: Hx Heart Attack Pulmonary Medical History: Reports: Hx Bronchitis, Hx Pneumonia, Hx Tuberculosis Denies: Hx Asthma, Hx COPD Neurological Medical History: Reports: Hx Seizures - Psychogenic seizures. Denies: Hx Cerebrovascular Accident Endocrine Medical History: Reports: Hx Hypothyroidism Renal/ Medical History: Denies: Hx Peritoneal Dialysis Musculoskeltal Medical History: Reports Hx Arthritis Psychiatric Medical History: Reports: Hx Anxiety Past Surgical History: Reports: Hx Adenoidectomy, Hx Gynecologic Surgery - Right ovary removed due to tumors then complete hysterectomy due to tumors, Hx Hysterectomy, Hx Thyroid Surgery - and thymus, Hx Tonsillectomy - adenoid, Hx Umbilical Hernia. Denies: Hx Pacemaker - Immunizations Immunizations up to date: Yes Hx Diphtheria, Pertussis, Tetanus Vaccination: Yes Review of Systems - Review of Systems Constitutional: See HPI, Malaise, Weakness EENT: No symptoms reported Cardiovascular: No symptoms reported Respiratory: No symptoms reported Gastrointestinal: No symptoms reported Genitourinary: No symptoms reported Female Genitourinary: No symptoms reported Musculoskeletal: No symptoms reported Skin: No symptoms reported Hematologic/Lymphatic: No symptoms reported Neurological/Psychological: No symptoms reported -: Yes All other systems reviewed and negative Physical Exam - Vital signs Vitals: Patient is vital signs had not been documented across otorrhea but on triage she had a temp of 98.4 pulse of 70 blood pressure 126/76 and a respiratory rate is 16 her O2 sat was 97% on room air. Interpretation: Normal - Notes Notes: PHYSICAL EXAMINATION: GENERAL: Well-appearing, well-nourished and in no acute distress. HEAD: Atraumatic, normocephalic. EYES: Pupils equal round and reactive to light, extraocular movements intact, conjunctiva are normal. ENT: Nares patent, oropharynx clear without exudates. Moist mucous membranes. NECK: Normal range of motion, supple without lymphadenopathy LUNGS: Breath sounds clear to auscultation bilaterally and equal. No wheezes rales or rhonchi. HEART: Regular rate and rhythm without murmurs ABDOMEN: Soft, nontender, nondistended abdomen. No guarding, no rebound. No masses appreciated. Female : deferred Musculoskeletal: Normal range of motion, no pitting or edema. No cyanosis. NEUROLOGICAL: Cranial nerves grossly intact. Normal speech, normal gait. Normal sensory, motor exams PSYCH: Normal mood, normal affect. SKIN: Warm, Dry, normal turgor, no rashes or lesions noted. Course - Re-evaluation Re-evalutation: 07/15/18 17:13 At present patient is feeling like she is just wore out. She denies any chest pain however we worked that up as well and get an EKG and troponin release x1. We will have her do some orthostatics that she is feeling a little weak. At this point time and I do not believe there is any necessity to pursue a NIH basis patient is not displaying any sign of neuro deficits. She has just started the chlorthalidone approximately 1 week ago and this may be dehydrating her sufficiently. We will do orthostatics. Doctor's Discharge - Discharge Clinical Impression: Hypotension Qualifiers: Hypotension type: unspecified hypotension type Qualified Code(s): I95.9 - Hypotension, unspecified Referrals: NANCY BOWERS MD [Primary Care Provider] - Follow up as needed
[2018-07-15 18:27] LABS: ABSOLUTE EOSINOPHILS # (AUTO) 0.1 10^3/uL (0.0-0.6); ABSOLUTE LYMPHOCYTES (AUTO) 1.9 10^3/uL (0.5-4.7); ABSOLUTE MONOCYTES (AUTO) 0.8 10^3/uL (0.1-1.4); ABSOLUTE NEUT (AUTO) 3.1 10^3/uL (1.7-8.2); BASOPHILS % (AUTO) 0.2 % (0-2); EOSINOPHILS % (AUTO) 1.4 % (0-6); HEMATOCRIT 36.6 % (36.0-47.0); HEMOGLOBIN 12.3 g/dL (12.0-15.5); MEAN CORPUSCULAR HEMOGLOBIN 28.7 pg (27.0-33.4); MEAN CORPUSCULAR HGB CONC 33.8 g/dL (32.0-36.0); MEAN CORPUSCULAR VOLUME 85 fl (80-97); MONOCYTES % (AUTO) 13.1 % (3-13); PLATELET COUNT 180 10^3/uL (150-450); RED CELL DISTRIBUTION WIDTH 15.7 % (11.5-14.0); SEGMENTED NEUTROPHILS % (AUTO) 53.3 % (42-78); TOTAL CELLS COUNTED % (AUTO) 100 %; WHITE BLOOD COUNT 5.9 10^3/uL (4.0-10.5)
[2018-07-15 18:29] LABS: APPEARANCE,URINE CLEAR; BILIRUBIN,URINE NEGATIVE (NEGATIVE); COLOR,URINE YELLOW; GLUCOSE, URINE NEGATIVE (NEGATIVE); KETONES,URINE NEGATIVE (NEGATIVE); LEUKOCYTE ESTERASE,URINE NEGATIVE (NEGATIVE); NITRITE,URINE NEGATIVE (NEGATIVE); PROTEIN,URINE NEGATIVE (NEGATIVE); URINE SPECIFIC GRAVITY 1.005; UROBILINOGEN,URINE NEGATIVE mg/dL (<2.0)
[2018-07-15 18:34] LABS: ALANINE AMINOTRANSFERASE 12 U/L (9-52); ALBUMIN 3.6 g/dL (3.5-5.0); ALKALINE PHOSPHATASE 52 U/L (38-126); ANION GAP 11 (5-19); ASPARTATE AMINO TRANSFERASE 14 U/L (14-36); BILIRUBIN,DIRECT 0.2 mg/dL (0.0-0.4); BILIRUBIN,TOTAL 0.5 mg/dL (0.2-1.3); BLOOD UREA NITROGEN 21 mg/dL (7-20); CALCIUM 8.2 mg/dL (8.4-10.2); CARBON DIOXIDE 31 mmol/L (22-30); CHLORIDE 98 mmol/L (98-107); GLUCOSE 108 mg/dL (75-110); POTASSIUM 3.9 mmol/L (3.6-5.0); SODIUM 139.8 mmol/L (137-145); TOTAL PROTEIN 6.7 g/dL (6.3-8.2)
--- NOTE | 2018-07-15 19:33 | ER Document Report ---
ED Dizziness/Weakness - General Chief Complaint: Blood Pressure Problem Stated Complaint: BLOOD PRESSURE ISSUE Time Seen by Provider: 07/15/18 17:08 Mode of Arrival: Ambulatory Notes: Patient is a 67-year-old female comes emergency room today complaining of fatigue and weakness. Patient states she has been having excessively high blood pressures and her primary Dr. Mays has been working with her on her medications to bring it down. 07/05/2018 her PCP added chlorthalidone and then this past 07/12/2018 they increased her valsartan to 160 mg to twice a day. Patient has been seen in this ER a few times for hypertension issues. She states that she woke up at 3 AM this morning and she was feeling weakness that she has not experienced before. She went to [employer] and when she came home her daughter took her blood pressure and it was 93/63. She called her PCP Dr. Mays and he told her to come to the ER. Patient denies having any chest pain but states that she did have some lumbar back pain earlier this morning with this episode. Pt. is currently denying all complaints. Pt. is stated that she no longer has any lower back pain, is not weak or lightheaded. Pt. denied CP, SOB, chills, fever, dizziness, NVD, URI symptoms. TRAVEL OUTSIDE OF THE [place] IN LAST 30 DAYS: No - Related Data Allergies/Adverse Reactions: Penicillins Allergy (Mild, Verified 05/31/17 00:00) Hives codeine [Codeine] Allergy (Verified 05/31/17 00:00) Head Tightness Past Medical History - General Information source: Patient - Social History Smoking Status: Never Smoker Cigarette use (# per day): No Chew tobacco use (# tins/day): No Frequency of alcohol use: None Drug Abuse: None Lives with: Family Family History: CAD, DM, Hyperlipidemia, Hypertension, Thyroid Disfunction Patient has suicidal ideation: No Patient has homicidal ideation: No - Past Medical History Cardiac Medical History: Reports: Hx Coronary Artery Disease, Hx Hypercholesterolemia, Hx Hypertension Denies: Hx Heart Attack Pulmonary Medical History: Reports: Hx Bronchitis, Hx Pneumonia, Hx Tuberculosis Denies: Hx Asthma, Hx COPD Neurological Medical History: Reports: Hx Seizures - Psychogenic seizures. Denies: Hx Cerebrovascular Accident Endocrine Medical History: Reports: Hx Hypothyroidism Renal/ Medical History: Denies: Hx Peritoneal Dialysis Musculoskeletal Medical History: Reports Hx Arthritis Psychiatric Medical History: Reports: Hx Anxiety Past Surgical History: Reports: Hx Adenoidectomy, Hx Gynecologic Surgery - Right ovary removed due to tumors then complete hysterectomy due to tumors, Hx Hysterectomy, Hx Thyroid Surgery - and thymus, Hx Tonsillectomy - adenoid, Hx Umbilical Hernia. Denies: Hx Pacemaker - Immunizations Immunizations up to date: Yes Hx Diphtheria, Pertussis, Tetanus Vaccination: Yes Review of Systems - Review of Systems Constitutional: No symptoms reported EENT: No symptoms reported Cardiovascular: See HPI Respiratory: See HPI Gastrointestinal: No symptoms reported Genitourinary: No symptoms reported Female Genitourinary: No symptoms reported Musculoskeletal: See HPI Skin: No symptoms reported Hematologic/Lymphatic: No symptoms reported Neurological/Psychological: See HPI Physical Exam - Vital signs Vitals: Temp Pulse BP Pulse Ox 98.4 F 71 126/76 H 97 07/15/18 16:22 07/15/18 16:22 07/15/18 16:22 07/15/18 16:22 - Notes Notes: GENERAL: Alert, interacts well. No acute distress. HEAD: Normocephalic, atraumatic. EYES: Pupils equal, round, and reactive to light. Extraocular movements intact. ENT: Oral mucosa moist, tongue midline. NECK: Full range of motion. Supple. Trachea midline. LUNGS: Clear to auscultation bilaterally, no wheezes, rales, or rhonchi. No respiratory distress. HEART: Regular rate and rhythm. No murmur ABDOMEN: Soft, non-tender. Non-distended. Bowel sounds present in all 4 quadrants. EXTREMITIES: Moves all 4 extremities spontaneously. No edema, normal radial and dorsalis pedis pulses bilaterally. No cyanosis. BACK: no cervical, thoracic, lumbar midline tenderness. No saddle anesthesia, normal distal neurovascular exam. NEUROLOGICAL: Alert and oriented x3. Normal speech. cranial nerves II through XII grossly intact. Strength 5 out of 5 all 4 extremities. PSYCH: Normal affect, normal mood. SKIN: Warm, dry, normal turgor. No rashes or lesions noted. Course - Re-evaluation Re-evalutation: 07/15/18 19:38 Pt. had maintained a BP in the 120s systolic since arrival to ED. Her orthostatics are unremarkable and she is now complaint free. Her Labs are relatively unremarkable as well. Increase in Kidney function, but also not the worst function she has had since being in this ED. Trop negative. Urine shows no signs of dehydration. Discussed need to call Dr. Mays tomorrow morning ( Monday) to discuss what happened to her BP. Pt. stated she was not going to take her blood pressure medications tonight and she was going to call her PCP in the morning. Discussed returning to the ED should she have any other episodes of dizziness, weakness, faitgue or develope CP, SOB, back pain or any other symptoms. - Vital Signs Vital signs: Temp Pulse Resp BP Pulse Ox 98.6 F 70 16 101/58 L 98 07/15/18 21:40 07/15/18 21:40 07/15/18 21:40 07/15/18 21:40 07/15/18 21:40 - Laboratory Result Diagrams: 07/15/18 18:11 07/15/18 18:11 Laboratory results interpreted by me: 07/15/18 07/15/18 18:11 18:11 RDW 15.7 H Monocytes % 13.1 H Carbon Dioxide 31 H BUN 21 H Creatinine 1.52 H Est GFR ( Amer) 42 L Est GFR (Non-Af Amer) 34 L Calcium 8.2 L Discharge - Discharge Clinical Impression: Hypotension Qualifiers: Hypotension type: unspecified hypotension type Qualified Code(s): I95.9 - Hypotension, unspecified Condition: Stable Disposition: HOME, SELF-CARE Additional Instructions: We discussed you have been seen and treated in the emergency department for low blood pressure. Please follow-up with your primary care provider tomorrow morning. Please return to the emergency room should you develop any signs of chest pain, weakness, dizziness, lightheadedness, numbness tingling in any extremity. Please return to the emergency room for any other concerning symptom. Referrals: NANCY BOWERS MD [Primary Care Provider] - Follow up as needed
[2018-07-15 21:42] VITALS: BP 101/58
--- NOTE | 2018-07-15 22:20 | EKG REPORT ---
SEVERITY:- ABNORMAL ECG - SINUS RHYTHM PROBABLE LEFT ATRIAL ABNORMALITY NONSPECIFIC T ABNORMALITIES, INFERIOR LEADS : Confirmed by: Maliha Davis MD 15-Jul-2018 22:19:45
== END 2018-07-15 21:39 | disposition home or self-care (01) ==
LOC: ER 16:13
DX: I95.9 Hypotension, unspecified (principal); R53.83 Other fatigue; R07.9 Chest pain, unspecified; I25.10 Atherosclerotic heart disease of native coronary artery without angina pectoris; I10 Essential (primary) hypertension; Z88.6 Allergy status to analgesic agent; Z88.0 Allergy status to penicillin
CPT/HCPCS: 36415; 80053; 81001; 84484; 85025; 93005; 93010; 99285

== ENCOUNTER 2018-07-20 11:08 | Emergency (ER) | payer MEDICARE, OTHER, MEDICAID ==
[2018-07-20 11:21] VITALS: BP 150/92
[2018-07-20] MEDS ORDERED: HYDROCODONE/ACETAMINOPHEN 5-325 MG TABLET PO ONE (11:39)
[2018-07-20] MEDS ORDERED: METHYLPREDNISOLONE ACETATE INJ 80 MG/1 ML VIAL IM ONE (11:40)
--- NOTE | 2018-07-20 11:45 | ER Document Report ---
ED Hand/Wrist Injury - General Chief Complaint: Hand Swelling Stated Complaint: HAND SWELLING Time Seen by Provider: 07/20/18 11:39 Mode of Arrival: Ambulatory Information source: Patient Notes: Chief complaint: Right hand pain History of complain:( obtained from----patient) 67 years old female with a history of gout, right knee last Monday, presents with sudden onset of swelling pain and redness over the right wrist and pain over the back of her right knee. No fever chills or other injuries. Onset: 2 days ago gradual Duration: 2 days of Severity: Moderate to severe Quality: Sharp Context: As described above Exacerbating factor and relieving factors: Any movements REVIEW OF SYSTEMS: CONSTITUTIONAL : Denies fever, chills, or sweats. Denies recent illness. EENT: Denies eye, ear, throat, or mouth pain or symptoms. Denies nasal or sinus congestion or discharge. Denies throat, tongue, or mouth swelling or difficulty swallowing. CARDIOVASCULAR: Denies chest pain. Denies palpitations or racing or irregular heart beat. Denies ankle edema. RESPIRATORY: Denies cough, cold, or chest congestion. Denies shortness of breath, difficulty breathing, or wheezing. GASTROINTESTINAL: Denies distention. Denies nausea, vomiting, or diarrhea. Denies blood in vomitus, stools, or per rectum. Denies black, tarry stools. Denies constipation. GENITOURINARY: Denies difficulty urinating, painful urination, burning, frequency, blood in urine, or discharge. FEMALE GENITOURINARY: Denies vaginal bleeding, heavy or abnormal periods, irregular periods. Denies vaginal discharge or odor. MUSCULOSKELETAL: Denies back or neck pain or stiffness SKIN: Denies rash, lesions or sores. HEMATOLOGIC : Denies easy bruising or bleeding. LYMPHATIC: Denies swollen, enlarged glands. NEUROLOGICAL: Denies confusion or altered mental status. Denies passing out or loss of consciousness. Denies dizziness or lightheadedness. Denies headache. Denies weakness or paralysis or loss of use of either side. Denies problems with gait or speech. Denies sensory loss, numbness, or tingling. Denies seizures. PSYCHIATRIC: Denies anxiety or stress. Denies depression, suicidal ideation, or homicidal ideation. ALL OTHER SYSTEMS REVIEWED AND NEGATIVE. PHYSICAL EXAMINATION: GENERAL: Well-appearing, well-nourished and in no acute distress. HEAD: Atraumatic, normocephalic. EYES: Pupils equal round and reactive to light, extraocular movements intact, conjunctiva are normal. ENT: Nares patent, oropharynx clear without exudates. Moist mucous membranes. NECK: Normal range of motion, supple without lymphadenopathy LUNGS: Breath sounds clear to auscultation bilaterally and equal. No wheezes rales or rhonchi. HEART: Regular rate and rhythm without murmurs ABDOMEN: Soft, nontender, nondistended abdomen. No guarding, no rebound. No masses appreciated. Examination of genitals-deferred Musculoskeletal: Right wrist shows swelling erythema and is warm and tender to touch. Right knee has no swelling erythema or warmness. Slight tenderness over the Manriquez's cyst noted. NEUROLOGICAL: Cranial nerves grossly intact. Normal speech, normal gait. Normal sensory, motor exams PSYCH: Normal mood, normal affect. SKIN: Warm, Dry, normal turgor, no rashes or lesions noted. Dictation was performed using [employer] voice recognition software TRAVEL OUTSIDE OF THE [place] IN LAST 30 DAYS: No - HPI Notes: Dictated - Related Data Allergies/Adverse Reactions: Penicillins Allergy (Mild, Verified 07/20/18 11:10) Hives codeine [Codeine] Allergy (Verified 07/20/18 11:10) Head Tightness Past Medical History - Social History Smoking Status: Never Smoker Chew tobacco use (# tins/day): No Frequency of alcohol use: None Drug Abuse: None Lives with: Family Family History: Reviewed & Not Pertinent, CAD, DM, Hyperlipidemia, Hypertension , Thyroid Disfunction Patient has suicidal ideation: No Patient has homicidal ideation: No - Past Medical History Cardiac Medical History: Reports: Hx Coronary Artery Disease, Hx Hypercholesterolemia, Hx Hypertension Denies: Hx Heart Attack Pulmonary Medical History: Reports: Hx Bronchitis, Hx Pneumonia, Hx Tuberculosis Denies: Hx Asthma, Hx COPD Neurological Medical History: Reports: Hx Seizures - Psychogenic seizures. Denies: Hx Cerebrovascular Accident Endocrine Medical History: Reports: Hx Hypothyroidism Renal/ Medical History: Denies: Hx Peritoneal Dialysis Musculoskeletal Medical History: Reports Hx Arthritis Psychiatric Medical History: Reports: Hx Anxiety Past Surgical History: Reports: Hx Adenoidectomy, Hx Gynecologic Surgery - Right ovary removed due to tumors then complete hysterectomy due to tumors, Hx Hysterectomy, Hx Thyroid Surgery - and thymus, Hx Tonsillectomy - adenoid, Hx Umbilical Hernia. Denies: Hx Pacemaker - Immunizations Immunizations up to date: Yes Hx Diphtheria, Pertussis, Tetanus Vaccination: Yes Review of Systems - Review of Systems Notes: Dictated Physical Exam - Vital signs Vitals: Temp Pulse Resp BP Pulse Ox 98.8 F 70 16 150/92 H 97 07/20/18 11:18 1118 11:18 07/20/18 11:18 07/20/18 11:18 07/20/18 11:18 - Notes Notes: Dictated Course - Re-evaluation Re-evalutation: 07/20/18 11:42 Explained diet and gout - Vital Signs Vital signs: Temp Pulse Resp BP Pulse Ox 98.8 F 70 16 150/92 H 97 07/20/18 11:18 07/20/18 11:18 07/20/18 11:18 07/20/18 11:18 07/20/18 11:18 Discharge - Discharge Clinical Impression: Gout attack Qualifiers: Gout site: wrist Gout etiology: other secondary cause Laterality: right Qualified Code(s): M10.431 - Other secondary gout, right wrist Condition: Fair Disposition: HOME, SELF-CARE Instructions: Gout ([facility]), Gout Diet ([facility]) Prescriptions: Hydrocodone Bit/Acetaminophen [Hydrocodon-Acetaminophen 5-325] 1 each PO Q6 #20 tablet Prednisone [Sterapred Ds] 1 pkg PO ASDIR PRN 12 Days [id number] PRN Reason: Referrals: NANCY BOWERS MD [Primary Care Provider] - Follow up as needed
== END 2018-07-20 11:56 | disposition home or self-care (01) ==
LOC: ER 11:08
DX: M10.9 Gout, unspecified (principal); I10 Essential (primary) hypertension; I25.10 Atherosclerotic heart disease of native coronary artery without angina pectoris; Z88.0 Allergy status to penicillin; Z88.5 Allergy status to narcotic agent
CPT/HCPCS: 99283; 96372; J1040; A9270

== ENCOUNTER 2018-09-09 13:29 | Emergency (ER) | payer MEDICARE, OTHER, MEDICAID ==
--- NOTE | 2018-09-09 14:44 | ER Document Report ---
ED Extremity Problem, Lower - General Chief Complaint: Foot Pain Stated Complaint: FOOT PAIN, SWELLING Time Seen by Provider: 09/09/18 14:02 Mode of Arrival: Ambulatory Information source: Patient Notes: 68-year-old female presents to ED for for complaint of left foot pain that started days ago. She states she has a history of gout but usually if she takes a prednisone it feels better. She states she is only been taking one prednisone because she did not have very many left. I explained to the patient if she did not take the proper dose that it was not going to affect her gout. Patient states the foot does not usually feel like this when she has gout it is the same redness and swollen but it feels different. Patient is alert and oriented respirations regular and unlabored speaking in full sentences. TRAVEL OUTSIDE OF THE [place] IN LAST 30 DAYS: No - HPI Patient complains to provider of: Pain Location: Foot - Left Occurred: Other - 4 days Onset/Duration: Gradual Quality of pain: Achy, Burning Severity: Moderate Pain Level: 4 Context: Other - Painful ambulation Recent injury: No Associated symptoms: Painful ambulation Exacerbated by: Movement, Walking Relieved by: Nothing - Related Data Allergies/Adverse Reactions: Penicillins Allergy (Mild, Verified 09/09/18 13:31) Hives codeine [Codeine] Allergy (Verified 09/09/18 13:31) Head Tightness Past Medical History - General Information source: Patient - Social History Smoking Status: Never Smoker Cigarette use (# per day): No Chew tobacco use (# tins/day): No Smoking Education Provided: No Frequency of alcohol use: None Drug Abuse: None Family History: Reviewed & Not Pertinent, CAD, DM, Hyperlipidemia, Hypertension, Thyroid Disfunction Patient has suicidal ideation: No Patient has homicidal ideation: No - Past Medical History Cardiac Medical History: Reports: Hx Coronary Artery Disease, Hx Hypercholesterolemia, Hx Hypertension Pulmonary Medical History: Reports: Hx Bronchitis, Hx Pneumonia, Hx Tuberculosis EENT Medical History: Reports: Other - Herpes simplex Neurological Medical History: Reports: Hx Seizures - Psychogenic seizures Endocrine Medical History: Reports: Hx Hypothyroidism - 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 Renal/ Medical History: Reports: None Malignancy Medical History: Reports: None GI Medical History: Reports: None Musculoskeletal Medical History: Reports Hx Arthritis, Reports Hx Gout Skin Medical History: Reports None Psychiatric Medical History: Reports: Hx Anxiety Traumatic Medical History: Reports: None Infectious Medical History: Reports: None Past Surgical History: Reports: Hx Adenoidectomy, Hx Gynecologic Surgery - Right ovary removed due to tumors then complete hysterectomy due to tumors, Hx Hysterectomy, Hx Thyroid Surgery - and thymus, Hx Tonsillectomy - adenoid, Hx Umbilical Hernia - Immunizations Immunizations up to date: Yes Hx Diphtheria, Pertussis, Tetanus Vaccination: Yes Review of Systems - Review of Systems Constitutional: No symptoms reported EENT: No symptoms reported Cardiovascular: No symptoms reported Respiratory: No symptoms reported Gastrointestinal: No symptoms reported Genitourinary: No symptoms reported Female Genitourinary: No symptoms reported Musculoskeletal: Other - Mildly erythematous swollen warm left foot which is where she normally has gout. Skin: No symptoms reported Hematologic/Lymphatic: No symptoms reported Neurological/Psychological: No symptoms reported -: Yes All other systems reviewed and negative Physical Exam - Vital signs Vitals: Temp Pulse Resp BP Pulse Ox 98.0 F 58 L 16 150/88 H 96 09/09/18 13:45 09/09/18 13:45 09/09/18 13:45 09/09/18 13:45 09/09/18 13:45 Interpretation: Normal - General General appearance: Appears well, Alert - HEENT Head: Normocephalic, Atraumatic Eyes: Normal Pupils: PERRL - Respiratory Respiratory status: No respiratory distress Chest status: Nontender Breath sounds: Normal Chest palpation: Normal - Cardiovascular Rhythm: Regular Heart sounds: Normal auscultation Murmur: No - Abdominal Inspection: Normal Distension: No distension Bowel sounds: Normal Tenderness: Nontender Organomegaly: No organomegaly - Back Back: Normal, Nontender - Extremities General upper extremity: Normal inspection, Nontender, Normal color, Normal ROM, Normal temperature General lower extremity: Normal ROM, Normal temperature, Normal weight bearing. No: Nikia's sign Foot: Tender, Edema, No evidence of FB - Erythematous, Other. No: Abrasion, Deformity, Ecchymosis, Instability, Laceration, Metatarsal compress. pain, Nail injury, Navicular tenderness, Puncture wound, Tender 5th metatarsal, Unable to bear weight - Neurological Neuro grossly intact: Yes Cognition: Normal Orientation: AAOx4 [place] Coma Scale Eye Opening: Spontaneous Say Coma Scale Verbal: Oriented Say Coma Scale Motor: Obeys Commands Say Coma Scale Total: 15 Speech: Normal Motor strength normal: LUE, RUE, LLE, RLE Sensory: Normal - Psychological Associated symptoms: Normal affect, Normal mood - Skin Skin Temperature: Warm Skin Moisture: Dry Skin Color: Normal Course - Re-evaluation Re-evalutation: 09/09/18 20:40 No cuts to the for foot no injuries to the foot. Patient states she has a history of gout in his foot. X-ray showed swelling but no radiological injuries. Patient was started on prednisone is what she usually takes for her gout and was discharged home with a prescription for prednisone and instructed to please follow-up with Dr. Pablo. She states she called him today to refill her acyclovir her herpes but did not tell him that she was having a flareup of her gout. Patient was instructed to please follow-up with Dr. Pablo on Monday for further treatment of her gout. Patient was given instructions for gout diet as well as for her gout. She verbalized understanding and agreement with treatment plan. 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 Gout is a problem caused by an excess of uric acid, a natural chemical found in the body. The cause of this disease is unknown. Gout arthritis occurs when crystals of uric acid form in the joints. The big toe is the most common joint involved, but any joint can become affected. Persons with gout may also form uric acid kidney stones, resulting in flank pain and blood in the urine. Nodules of uric acid may form under the skin. The first step of treatment is to decrease the inflammation in the joint with antiinflammatory medication. Medication to lower the uric acid level in the blood may then be prescribed. This medication should be taken regularly, as any sudden change in dosage may provoke an attack of gout. Some foods, such as red meat, can provoke an attack in some gout sufferers. Call the doctor if new symptoms arise, or if you do not improve. Gout Diet Changing your diet can decrease the uric acid in your blood. High levels of uric acid cause gouty arthritis and uric acid kidney stones. If you have gout, you should avoid meats that are high in purine. Meat products to avoid include liver, kidneys, and brains. In general, poultry is better than red meats. Seafoods to avoid include anchovies, sardines, davis, mackerel, and scallops. In addition to limiting purine-rich foods, people with gout should limit protein intake to 10-15% of total calories. Carbohydrate intake should be around 50% of total daily calories. Limit fat intake to 30% of total daily calories. Cholesterol intake should be less than 300 mg/day. Maintain or achieve a healthy body weight. Weight loss should be gradual. Rapid weight loss can actually increase uric acid levels temporarily. Alcohol, especially beer, should be avoided. Get plenty of fluids. This dilutes urinary uric acid, and helps prevent uric acid kidney stones. Drink eight to twelve cups of water daily. STEROID MEDICATION: You have been given a medicine of the cortisone/steroid class. This medication is used to control inflammation or allergy. It is usually only given for a short period of time, until the acute process subsides. There are usually no side effects from short-term use of cortisone-like medications. Some persons feel an increased sense of well-being and are not sleepy at bedtime. Long-term use of cortisone medications is best avoided, unless required for a severe condition. If your condition does not remit, or relapses after the course of corticosteroid medication, you should consult your physician. FOLLOW-UP CARE: If you have been referred to a physician for follow-up care, call the physicians office for an appointment as you were instructed or within the next two days. If you experience worsening or a significant change in your symptoms, notify the physician immediately or return to the Emergency Department at any time for re-evaluation. Prescriptions: Prednisone [Sterapred Ds] 1 pkg PO ASDIR PRN 12 Days [email or web address] PRN Reason: Forms: Elevated Blood Pressure Referrals: FLORENTIN PABLO MD [Primary Care Provider] - Follow up as needed
--- NOTE | 2018-09-09 15:24 | RADIOLOGY REPORT (SQ) ---
EXAM DESCRIPTION: FOOT LEFT COMPLETE COMPLETED DATE/TIME: 09/09/2018 3:07 pm REASON FOR STUDY: pain and swelling COMPARISON: None. NUMBER OF VIEWS: Three views. TECHNIQUE: AP, lateral and oblique radiographic images acquired of the left foot. LIMITATIONS: None. FINDINGS: MINERALIZATION: Normal. BONES: No acute fracture or dislocation. No worrisome bone lesions. JOINTS: No effusions. SOFT TISSUES: Diffuse swelling. Dystrophic calcification overlying the Achilles tendon. OTHER: No other significant finding. IMPRESSION: Soft tissue swelling. TECHNICAL DOCUMENTATION: JOB ID: [id number] [employer]- All Rights Reserved Reading location - IP/workstation name: [email or web address]
[2018-09-09 15:41] VITALS: BP 151/88
[2018-09-09] MEDS ORDERED: PREDNISONE 20 MG TABLET PO ONE (15:47)
== END 2018-09-09 15:57 | disposition home or self-care (01) ==
LOC: ER 13:29
DX: M1A.0720 Idiopathic chronic gout, left ankle and foot, without tophus (tophi) (principal); M79.672 Pain in left foot; I25.10 Atherosclerotic heart disease of native coronary artery without angina pectoris; E78.00 Pure hypercholesterolemia, unspecified; I10 Essential (primary) hypertension; Z88.0 Allergy status to penicillin; Z88.6 Allergy status to analgesic agent; Z90.710 Acquired absence of both cervix and uterus
CPT/HCPCS: 99283; 73630; A9270; J7512

== ENCOUNTER → 2018-09-18 | Outpatient (CLI) | payer MEDICARE, OTHER ==
[2018-09-18 11:10] LABS: ABSOLUTE EOSINOPHILS # (AUTO) 0.1 10^3/uL (0.0-0.6); ABSOLUTE LYMPHOCYTES (AUTO) 2.4 10^3/uL (0.5-4.7); ABSOLUTE MONOCYTES (AUTO) 0.6 10^3/uL (0.1-1.4); ABSOLUTE NEUT (AUTO) 3.2 10^3/uL (1.7-8.2); BASOPHILS % (AUTO) 0.3 % (0-2); EOSINOPHILS % (AUTO) 1.1 % (0-6); HEMATOCRIT 37.3 % (36.0-47.0); HEMOGLOBIN 12.3 g/dL (12.0-15.5); LYMPHOCYTES % (AUTO) 38.4 % (13-45); MEAN CORPUSCULAR HEMOGLOBIN 28.4 pg (27.0-33.4); MEAN CORPUSCULAR HGB CONC 33.1 g/dL (32.0-36.0); MEAN CORPUSCULAR VOLUME 86 fl (80-97); MONOCYTES % (AUTO) 9.2 % (3-13); PLATELET COUNT 199 10^3/uL (150-450); RED BLOOD COUNT 4.34 10^6/uL (3.72-5.28); RED CELL DISTRIBUTION WIDTH 16.9 % (11.5-14.0); TOTAL CELLS COUNTED % (AUTO) 100 %; WHITE BLOOD COUNT 6.2 10^3/uL (4.0-10.5)
[2018-09-18 11:16] LABS: APPEARANCE,URINE CLEAR; BILIRUBIN,URINE NEGATIVE (NEGATIVE); COLOR,URINE YELLOW; GLUCOSE, URINE NEGATIVE (NEGATIVE); KETONES,URINE NEGATIVE (NEGATIVE); LEUKOCYTE ESTERASE,URINE NEGATIVE (NEGATIVE); NITRITE,URINE NEGATIVE (NEGATIVE); PROTEIN,URINE NEGATIVE (NEGATIVE); URINE SPECIFIC GRAVITY 1.015; UROBILINOGEN,URINE NEGATIVE mg/dL (<2.0)
[2018-09-18 11:32] LABS: ALBUMIN 3.8 g/dL (3.5-5.0); ANION GAP 10 (5-19); BLOOD UREA NITROGEN 30 mg/dL (7-20); CALCIUM 8.1 mg/dL (8.4-10.2); CARBON DIOXIDE 29 mmol/L (22-30); CHLORIDE 98 mmol/L (98-107); GLUCOSE 105 mg/dL (75-110); PHOSPHORUS 3.4 mg/dL (2.5-4.5); POTASSIUM 3.2 mmol/L (3.6-5.0); SODIUM 137.1 mmol/L (137-145)
[2018-09-19 13:39] LABS: CREATININE URINE 106.1 mg/dL (Not Estab.); MICROALBUMIN URINE 25.6 ug/mL (Not Estab.)
== END ==
LOC: OD 10:11
PROVIDERS: ATTEND Internal Medicine Nephrology
DX: I12.9 Hypertensive chronic kidney disease with stage 1 through stage 4 chronic kidney disease, or unspecified chronic kidney disease (principal); N18.3 Chronic kidney disease, stage 3 (moderate); E55.9 Vitamin D deficiency, unspecified
CPT/HCPCS: 36415; 80048; 81001; 82040; 82043; 82306; 82570; 83970; 84100; 85025

== ENCOUNTER 2018-11-28 00:29 | Emergency (ER) | payer MEDICARE, OTHER ==
--- NOTE | 2018-11-28 02:21 | ER Document Report ---
ED Blood Pressure Problem - General Chief Complaint: High Blood Pressure Stated Complaint: BLOOD PRESSURE Time Seen by Provider: 11/28/18 01:15 Primary Care Provider: FLORENTIN PABLO MD [Primary Care Provider] - Follow up as needed Notes: Patient is a 68 year old female that comes to the Emergency Department for chief complaint of elevated blood pressure. She states she was seen at her primary care physician this morning, she was noted to have high blood pressure, she was placed in a dark room and her blood pressure normalized and then she was discharged home, she states that tonight she checked her blood pressure again and it was 206 systolic, she states she became concerned and came to the emergency department as a result. She denies headache, dizziness, chest pain, shortness of breath, or changes in urination. She is on multiple blood pressure medications including chlorthalidone, clonidine, carvedilol, valsartan. She is compliant with these reportedly. She states the only change in her medications that she had her allopurinol doubled and she now takes colchicine daily. TRAVEL OUTSIDE OF THE [place] IN LAST 30 DAYS: No - Related Data Allergies/Adverse Reactions: Penicillins Allergy (Mild, Verified 11/28/18 00:36) Hives codeine [Codeine] Allergy (Verified 11/28/18 00:36) Head Tightness Past Medical History - General Information source: Patient - Social History Smoking Status: Never Smoker Frequency of alcohol use: None Drug Abuse: None Lives with: Family Family History: Reviewed & Not Pertinent, CAD, DM, Hyperlipidemia, Hypertension, Thyroid Disfunction - Past Medical History Cardiac Medical History: Reports: Hx Coronary Artery Disease, Hx Hypercholesterolemia, Hx Hypertension Denies: Hx Heart Attack Pulmonary Medical History: Reports: Hx Bronchitis, Hx Pneumonia, Hx Tuberculosis Denies: Hx Asthma, Hx COPD Neurological Medical History: Reports: Hx Seizures - Psychogenic seizures. 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 Denies: Hx Pacemaker - Immunizations Immunizations up to date: Yes Hx Diphtheria, Pertussis, Tetanus Vaccination: Yes Review of Systems - Review of Systems Constitutional: No symptoms reported EENT: No symptoms reported Cardiovascular: No symptoms reported Respiratory: No symptoms reported Gastrointestinal: No symptoms reported Genitourinary: No symptoms reported Female Genitourinary: No symptoms reported Musculoskeletal: No symptoms reported Skin: No symptoms reported Hematologic/Lymphatic: No symptoms reported Neurological/Psychological: No symptoms reported Physical Exam - Vital signs Vitals: Temp Pulse Resp BP Pulse Ox 98.0 F 62 18 189/105 H 97 11/28/18 00:42 11/28/18 00:42 11/28/18 00:42 11/28/18 00:42 11/28/18 00:42 - Notes Notes: GENERAL: Alert, interacts well. No acute distress. HEAD: Normocephalic, atraumatic. EYES: Pupils equal, round, and reactive to light. Extraocular movements intact. Minimal injection of the sclera on the left, unremarkable otherwise. ENT: Oral mucosa moist, tongue midline. Oropharynx unremarkable. Airway patent. Nares patent, minimal rhinorrhea, no nasal septal hematoma, TM's intact. NECK: Full range of motion. Supple. Trachea midline. LUNGS: Clear to auscultation bilaterally, no wheezes, rales, or rhonchi. No respiratory distress. HEART: Regular rate and rhythm. No murmur ABDOMEN: Soft, non-tender. Non-distended. Bowel sounds present in all 4 quadrants. GENITOURINARY: Deferred EXTREMITIES: Moves all 4 extremities spontaneously. No edema, normal radial and dorsalis pedis pulses bilaterally. No cyanosis. BACK: no cervical, thoracic, lumbar midline tenderness. No saddle anesthesia, normal distal neurovascular exam. NEUROLOGICAL: Alert and oriented x3. Normal speech. [cranial nerves II through XII grossly intact]. PSYCH: Normal affect, normal mood. SKIN: Warm, dry, normal turgor. No rashes or lesions noted. Course - Re-evaluation Re-evalutation: Patient with fluctuating blood pressures. She states her average is 140s-150s systolic. When she becomes relaxed she comes down into the 150s. When I engage her she will go up somewhat but not severely. She is asymptomatic with this hypertension, she has no headache, chest pain, dizziness, or reported symptoms otherwise. She has a lot of questions, she is anxious about whether she is taking too much potassium that she was placed on after being given chlorthalidone (her hydrochlorthiazide was apparently flaring of her gout), this was 3.4 and unremarkable. She is concerned that her kidney function is worsening because of her elevated blood pressures recently, this was checked and is not significantly different from prior. She asks if her additional allopurinol that she is taking now is elevating her blood pressures, I do not believe this is the case. After answering these questions patient is very satisfied, she states she is ready to leave. Patient does have mild eye irritation bilaterally and occasional rhinorrhea, she states this is occasionally recurrent for her, placing on Claritin. Patient has no other complaints, requesting leave, she was discharged with return precautions which were discussed in detail. - Vital Signs Vital signs: Temp Pulse Resp BP Pulse Ox 98.0 F 62 17 172/97 H 97 11/28/18 00:42 11/28/18 00:42 11/28/18 03:01 11/28/18 03:01 11/28/18 03:01 - Laboratory Result Diagrams: 11/28/18 02:09 Laboratory results interpreted by me: 11/28/18 02:09 Potassium 3.4 L BUN 24 H Creatinine 1.30 H Est GFR ( Amer) 50 L Est GFR (Non-Af Amer) 41 L Discharge - Discharge Clinical Impression: Elevated blood pressure reading, Essential hypertension, Eye irritation Condition: Stable Disposition: HOME, SELF-CARE Additional Instructions: Your blood pressure needs to be tracked and possibly more managed but it is not concerning at this time tonight. I recommend that you check your blood pressure twice a day, write down the 2 numbers, do this for approximately 1 week, and then will show your primary care this internal for additional adjustments of your daily medications. Also remember to reduce salt in your daily diet. Your potassium today is 3.4, continue your current potassium regimen. Your creatinine today is 1.3, this is not a concerning change for your kidneys. You can take the Claritin, you have allergic type symptoms causing your eye and nasal irritation, use this daily and it can significantly help. Follow-up with your primary care for additional management. Return if you worsen including severe headache, chest pain, difficulty urinating, or any other concerning symptoms. Prescriptions: Loratadine [Claritin 10 mg Tablet] 10 mg PO DAILY #30 tablet Referrals: FLORENTIN PABLO MD [Primary Care Provider] - Follow up as needed
[2018-11-28 02:53] LABS: ANION GAP 12 (5-19); BLOOD UREA NITROGEN 24 mg/dL (7-20); CALCIUM 9.6 mg/dL (8.4-10.2); CARBON DIOXIDE 25 mmol/L (22-30); CHLORIDE 103 mmol/L (98-107); GLUCOSE 108 mg/dL (75-110); POTASSIUM 3.4 mmol/L (3.6-5.0); SODIUM 140.1 mmol/L (137-145)
[2018-11-28 03:17] VITALS: BP 172/97
== END 2018-11-28 03:16 | disposition home or self-care (01) ==
LOC: ER 00:29
DX: I10 Essential (primary) hypertension (principal); Z79.899 Other long term (current) drug therapy; I25.10 Atherosclerotic heart disease of native coronary artery without angina pectoris; H57.9 Unspecified disorder of eye and adnexa; M10.9 Gout, unspecified; J34.89 Other specified disorders of nose and nasal sinuses; Z88.0 Allergy status to penicillin; Z88.5 Allergy status to narcotic agent
CPT/HCPCS: 36415; 80048; 99283

== ENCOUNTER → 2018-12-18 | Outpatient (CLI) | payer MEDICARE, OTHER ==
[2018-12-18 14:53] LABS: ANION GAP 10 (5-19); BLOOD UREA NITROGEN 26 mg/dL (7-20); CALCIUM 9.5 mg/dL (8.4-10.2); CARBON DIOXIDE 26 mmol/L (22-30); CHLORIDE 106 mmol/L (98-107); GLUCOSE 98 mg/dL (75-110); POTASSIUM 3.9 mmol/L (3.6-5.0)
== END ==
LOC: OD 13:48
PROVIDERS: ATTEND Internal Medicine Nephrology
DX: I12.9 Hypertensive chronic kidney disease with stage 1 through stage 4 chronic kidney disease, or unspecified chronic kidney disease (principal); N18.3 Chronic kidney disease, stage 3 (moderate)
CPT/HCPCS: 36415; 80048; 83970

== ENCOUNTER 2019-01-15 17:53 | Emergency (ER) | payer MEDICARE, OTHER ==
[2019-01-15] MEDS ORDERED: IBUPROFEN 800 MG TABLET PO ONE (19:16)
--- NOTE | 2019-01-15 19:17 | ER Document Report ---
HPI - HPI Patient complains to provider of: right elbow pain Time Seen by Provider: 01/15/19 19:12 Onset: Yesterday Onset/Duration: Sudden Quality of pain: Achy Severity: Severe Pain Level: 4 Context: Patient presents to the emergency department with complaints of right elbow pain. Patient reports pain started yesterday. First she reported the pain woke her up at 4:00. Denies trauma. Reports she is been cleaning her house recently. Patient is right-handed. Has history of gout. No other symptoms such as fever chest pain shortness of breath. Patient reports the elbow is swollen. Patient was evaluated by her doctor today but forgot to mention that her elbow was hurting. She reports she took Tylenol earlier for the pain but it really did not help. Associated Symptoms: None Exacerbated by: Movement - REPRODUCTIVE Reproductive: DENIES: : - DERM Skin Color: Normal Past Medical History - General Information source: Patient - Social History Smoking Status: Never Smoker Cigarette use (# per day): No Frequency of alcohol use: None Drug Abuse: None Family History: Reviewed & Not Pertinent, CAD, DM, Hyperlipidemia, Hypertension, Thyroid Disfunction Patient has suicidal ideation: No Patient has homicidal ideation: No - Past Medical History Cardiac Medical History: Reports: Hx Coronary Artery Disease, Hx Hypercholesterolemia, Hx Hypertension Denies: Hx Heart Attack Pulmonary Medical History: Reports: Hx Bronchitis, Hx Pneumonia, Hx Tuberculosis Denies: Hx Asthma, Hx COPD Neurological Medical History: Reports: Hx Seizures - Psychogenic seizures. 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 Denies: Hx Pacemaker - Immunizations Immunizations up to date: Yes Hx Diphtheria, Pertussis, Tetanus Vaccination: Yes Vertical Provider Document - CONSTITUTIONAL Agree With Documented VS: Yes Exam Limitations: No Limitations General Appearance: WD/WN, No Apparent Distress - INFECTION CONTROL TRAVEL OUTSIDE OF THE [place] IN LAST 30 DAYS: No - HEENT HEENT: Atraumatic, Normocephalic - NECK Neck: Supple - RESPIRATORY Respiratory: No Respiratory Distress - CARDIOVASCULAR Cardiovascular: Regular Rate - MUSCULOSKELETAL/EXTREMETIES Musculoskeletal/Extremeties: MAEW, FROM, Tender - Right elbow tender to palpation no obvious deformity no erythema no warmth no swelling good radial pulse good cap refill - NEURO Level of Consciousness: Awake, Alert, Appropriate Motor/Sensory: No Motor Deficit - DERM Integumentary: Warm, Dry Course - Vital Signs Vital signs: Temp Pulse Resp BP Pulse Ox 98.0 F 71 16 136/84 H 96 01/15/19 18:28 01/15/19 18:28 01/15/19 18:28 01/15/19 18:28 01/15/19 18:28 - Diagnostic Test Radiology reviewed: Image reviewed, Reports reviewed - negative elbow Discharge - Discharge Clinical Impression: Right elbow pain Condition: Stable Disposition: HOME, SELF-CARE Instructions: Acetaminophen, Ice & Elevation ([facility]) Additional Instructions: *You have been evaluated for right elbow pain *take tylenol as indicated for pain *Rest/Ice/Elevate your elbow *Follow up with your primary care provider within one week for recheck *Return to ED for worsening condition, changes, needs, elbow becomes red/warm to touch Referrals: NANCY BOWERS MD [Primary Care Provider] - Follow up in 1 week
--- NOTE | 2019-01-15 20:07 | RADIOLOGY REPORT (SQ) ---
EXAM DESCRIPTION: ELBOW RIGHT OVER 2 VIEWS COMPLETED DATE/TIME: 01/15/2019 7:42 pm REASON FOR STUDY: right elbow pain COMPARISON: None. NUMBER OF VIEWS: Four views. TECHNIQUE: AP, lateral, and both oblique radiographic images acquired of the right elbow. LIMITATIONS: None. FINDINGS: MINERALIZATION: Normal. BONES: No acute fracture or dislocation. No worrisome bone lesions. JOINT: No effusion. SOFT TISSUES: No soft tissue swelling. No foreign body. OTHER: No other significant finding. IMPRESSION: NEGATIVE STUDY OF THE RIGHT ELBOW. NO RADIOGRAPHIC EVIDENCE OF ACUTE INJURY. TECHNICAL DOCUMENTATION: JOB ID: [id number] [employer]- All Rights Reserved Reading location - IP/workstation name: [email or web address]
[2019-01-15 20:38] VITALS: BP 156/94
== END 2019-01-15 20:38 | disposition home or self-care (01) ==
LOC: ER 17:53
DX: M25.521 Pain in right elbow (principal); I25.10 Atherosclerotic heart disease of native coronary artery without angina pectoris; E78.00 Pure hypercholesterolemia, unspecified; I10 Essential (primary) hypertension; E03.9 Hypothyroidism, unspecified; Z90.710 Acquired absence of both cervix and uterus
CPT/HCPCS: 99283; 73080; A9270

== ENCOUNTER 2019-04-17 13:57 | Emergency (ER) | payer MEDICARE ==
[2019-04-17 14:04] VITALS: BP 141/85
--- NOTE | 2019-04-17 14:21 | ER Document Report ---
HPI - HPI Time Seen by Provider: 04/17/19 14:17 Pain Level: 3 Notes: Patient is a 68-year-old female with a history of hypertension, chronic kidney disease, gout, arthritis who presents complaining of right hand and right wrist pain over the past 2 days. Patient states that around this time her grandson did run into her hand, but does not believe that that caused her issues. Patient states that she has gout and thinks that this may be another flareup. Patient states that she has lost some range of motion in her wrist because of some of the swelling and pain. Denies any headache, fever, URI, sore throat, chest pain, palpitations, syncope, cough, shortness of breath, wheeze, dyspnea, abdominal pain, nausea/vomiting/diarrhea, urinary retention, dysuria, hematuria, loss of control of bowel or bladder, numbness/tingling, muscle paralysis/weakness, or rash. - ROS Systems Reviewed and Negative: Yes All other systems reviewed and negative - REPRODUCTIVE Reproductive: DENIES: : Past Medical History - Social History Smoking Status: Unknown if Ever Smoked Family History: Reviewed & Not Pertinent, CAD, DM, Hyperlipidemia, Hypertension, Thyroid Disfunction - Past Medical History Cardiac Medical History: Reports: Hx Coronary Artery Disease, Hx Hypercholesterolemia, Hx Hypertension Denies: Hx Heart Attack Pulmonary Medical History: Reports: Hx Bronchitis, Hx Pneumonia, Hx Tuberculosis Denies: Hx Asthma, Hx COPD Neurological Medical History: Reports: Hx Seizures - Psychogenic seizures. 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 Denies: Hx Pacemaker - Immunizations Immunizations up to date: Yes Hx Diphtheria, Pertussis, Tetanus Vaccination: Yes Vertical Provider Document - CONSTITUTIONAL Agree With Documented VS: Yes Notes: PHYSICAL EXAMINATION: GENERAL: Well-appearing, well-nourished and in no acute distress. HEAD: Atraumatic, normocephalic. NECK: Normal range of motion, supple without lymphadenopathy. No midline tenderness. LUNGS: Breath sounds clear to auscultation bilaterally and equal. No wheezes rales or rhonchi. HEART: Regular rate and rhythm without murmurs, rubs, gallops. Musculoskeletal: Rt hand/wrist: + mild swelling distal wrist. No erythema, warmth, ecchymosis noted. N/V intact distal. LROM to passive/active at the wrist. 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 No scaphoid tenderness. + mild tenderness IP joint of thumb w/o any erythema, swelling, or ecchymosis. Extremities: No cyanosis, clubbing, or edema b/l. Peripheral pulses 2+. Capillary refill less than 3 seconds. NEUROLOGICAL: Normal speech, normal gait. Normal sensory, motor exams otherwise unremarkable PSYCH: Normal mood, normal affect. SKIN: see above. No rash - INFECTION CONTROL TRAVEL OUTSIDE OF THE [place] IN LAST 30 DAYS: No Course - Re-evaluation Re-evalutation: 04/17/19 14:[address] Quinn who is in agreement with dispo/plan: Patient is an afebrile, well-hydrated, 68-year-old female who presents to the ED with Rt wrist/hand pain which I suspect to be probable gout and arthritic pains. Vitals are acceptable without any significant tachycardia, tachypnea, or hypoxia. PE is otherwise unremarkable for any neurovascular compromise, obvious tendon/ligament rupture, obvious fracture/dislocation, septic joint. X-ray was unremarkable for any acute pathology. Cock-up splint provided. Patient is nontoxic-appearing. No other labs or imaging warranted at this time based on H&P. Conservative measures otherwise for symptoms. Recheck with your PCM in 3- 5 days. Consider consult orthopedics. Return to the ED with any worsening/concerning symptoms otherwise as reviewed in discharge. Patient is in agreement. - Vital Signs Vital signs: Temp Pulse Resp BP Pulse Ox 98.3 F 69 16 141/85 H 95 04/17/19 14:03 04/17/19 14:03 04/17/19 14:03 04/17/19 14:03 04/17/19 14:03 Discharge - Discharge Clinical Impression: Right wrist pain Condition: Stable Disposition: HOME, SELF-CARE Additional Instructions: Rest, Ice, Compression, Elevation Tylenol as needed Light stretches daily Strength exercises as able Moist heat and massage may help F/u with your PCP in 3-5 days for a recheck Consider consult(s) with Orthopedics/physical therapy for ongoing/worsening symptoms Return to the ED with any worsening symptoms and/or development of fever, headache, chest pain, palpitations, syncope, shortness of breath, trouble breathing, abdominal pain, n/v/d, muscle weakness/paralysis, numbness/tingling, swelling, redness, or other worsening symptoms that are concerning to you. Prescriptions: Prednisone [Deltasone 10 mg Tablet] 10 mg PO DAILY #18 tablet Forms: Elevated Blood Pressure Referrals: FLORENTIN PABLO MD [Primary Care Provider] - Follow up as needed [facility] [Provider Group] - Follow up as needed
--- NOTE | 2019-04-17 14:42 | RADIOLOGY REPORT (SQ) ---
EXAM DESCRIPTION: WRIST RIGHT 3 VIEWS COMPLETED DATE/TIME: 04/17/2019 2:29 pm REASON FOR STUDY: rt wrist pain, LROM COMPARISON: 04/01/2014 NUMBER OF VIEWS: Three views. TECHNIQUE: AP, lateral, and oblique radiographic images acquired of the right wrist. LIMITATIONS: None. FINDINGS: MINERALIZATION: Normal. BONES: No acute fracture or dislocation. No worrisome bone lesions. Normal alignment. Degenerative changes at the 1st MTP joint. Additional degenerative changes at the 1st carpometacarpal joint with ulnar subluxation of the phalanx in relation to the metacarpal. Chondrocalcinosis. SOFT TISSUES: No soft tissue swelling. No foreign body. OTHER: No other significant finding. IMPRESSION: No definite acute bony abnormality. Degenerative changes at the 1st carpometacarpal joint and MTP joint with ulnar subluxation of the 1st phalanx in relation to the metacarpal, likely chronic. Likely chondrocalcinosis which can be seen with CPPD arthropathy or osteoarthritis. TECHNICAL DOCUMENTATION: JOB ID: [id number] [employer]- All Rights Reserved Reading location - IP/workstation name: [email or web address]
--- NOTE | 2019-04-17 14:43 | RADIOLOGY REPORT (SQ) ---
EXAM DESCRIPTION: HAND RIGHT 3 VIEWS COMPLETED DATE/TIME: 04/17/2019 2:29 pm REASON FOR STUDY: wrist/thumb pain COMPARISON: None. EXAM PARAMETERS: NUMBER OF VIEWS: Three views. TECHNIQUE: AP, lateral and oblique radiographic images acquired of the right hand. LIMITATIONS: None. FINDINGS: MINERALIZATION: Normal. BONES: No acute fracture or dislocation. No worrisome bone lesions. JOINTS: No dislocation. Degenerative changes at the 1st carpometacarpal joint and scattered interpha langeal joints with joint space loss, osteophytosis and subchondral sclerosis. SOFT TISSUES: No soft tissue swelling. No foreign body. OTHER: No other significant finding. IMPRESSION: No evidence of acute bony abnormality. Degenerative changes at the 1st carpometacarpal joint and MCP joint with mild ulnar subluxation of th e 1st phalanx in relation to the metacarpal, likely chronic. TECHNICAL DOCUMENTATION: JOB ID: [id number] [employer]- All Rights Reserved Reading location - IP/workstation name: [email or web address]
== END 2019-04-17 14:52 | disposition home or self-care (01) ==
LOC: ER 13:57
DX: M25.531 Pain in right wrist (principal); M79.641 Pain in right hand; I12.9 Hypertensive chronic kidney disease with stage 1 through stage 4 chronic kidney disease, or unspecified chronic kidney disease; N18.9 Chronic kidney disease, unspecified; I25.10 Atherosclerotic heart disease of native coronary artery without angina pectoris; E78.00 Pure hypercholesterolemia, unspecified; Z90.710 Acquired absence of both cervix and uterus
CPT/HCPCS: 99283; 73130; 73110; L3908

== ENCOUNTER → 2019-04-18 | Outpatient (CLI) | payer MEDICARE, OTHER ==
[2019-04-18 11:14] LABS: ADD MANUAL MICROSCOPIC YES; APPEARANCE,URINE SLIGHTLY-CLOUDY; BILIRUBIN,URINE NEGATIVE (NEGATIVE); COLOR,URINE YELLOW; GLUCOSE, URINE NEGATIVE (NEGATIVE); KETONES,URINE NEGATIVE (NEGATIVE); LEUKOCYTE ESTERASE,URINE NEGATIVE (NEGATIVE); NITRITE,URINE NEGATIVE (NEGATIVE); PROTEIN,URINE NEGATIVE (NEGATIVE); URINE SPECIFIC GRAVITY 1.011; UROBILINOGEN,URINE NEGATIVE mg/dL (<2.0)
[2019-04-18 11:14] LABS: ABSOLUTE LYMPHOCYTES (AUTO) 0.9 10^3/uL (0.5-4.7); ABSOLUTE MONOCYTES (AUTO) 0.2 10^3/uL (0.1-1.4); ABSOLUTE NEUT (AUTO) 5.2 10^3/uL (1.7-8.2); BASOPHILS % (AUTO) 0.4 % (0-2); EOSINOPHILS % (AUTO) 0.4 % (0-6); HEMATOCRIT 34.8 % (36.0-47.0); LYMPHOCYTES % (AUTO) 14.8 % (13-45); MEAN CORPUSCULAR HEMOGLOBIN 28.8 pg (27.0-33.4); MEAN CORPUSCULAR HGB CONC 34.4 g/dL (32.0-36.0); MEAN CORPUSCULAR VOLUME 84 fl (80-97); MONOCYTES % (AUTO) 3.3 % (3-13); PLATELET COUNT 172 10^3/uL (150-450); RED BLOOD COUNT 4.15 10^6/uL (3.72-5.28); RED CELL DISTRIBUTION WIDTH 15.1 % (11.5-14.0); SEGMENTED NEUTROPHILS % (AUTO) 81.1 % (42-78); TOTAL CELLS COUNTED % (AUTO) 100 %; WHITE BLOOD COUNT 6.4 10^3/uL (4.0-10.5)
[2019-04-18 11:19] LABS: BACTERIA,URINE TRACE /HPF
[2019-04-18 11:58] LABS: ALBUMIN 4.5 g/dL (3.5-5.0); ANION GAP 13 (5-19); BLOOD UREA NITROGEN 24 mg/dL (7-20); CALCIUM 9.3 mg/dL (8.4-10.2); CARBON DIOXIDE 28 mmol/L (22-30); CHLORIDE 99 mmol/L (98-107); GLUCOSE 144 mg/dL (75-110); PHOSPHORUS 3.8 mg/dL (2.5-4.5); POTASSIUM 3.5 mmol/L (3.6-5.0)
[2019-04-19 10:36] LABS: CREATININE URINE 76.3 mg/dL (Not Estab.); MICROALBUMIN URINE 11.1 ug/mL (Not Estab.)
== END ==
LOC: OD 10:30
PROVIDERS: ATTEND Internal Medicine Nephrology
DX: I12.9 Hypertensive chronic kidney disease with stage 1 through stage 4 chronic kidney disease, or unspecified chronic kidney disease (principal); N18.3 Chronic kidney disease, stage 3 (moderate); R80.9 Proteinuria, unspecified; N25.81 Secondary hyperparathyroidism of renal origin
CPT/HCPCS: 36415; 80069; 81001; 82043; 82306; 82570; 83970; 85025

== ENCOUNTER 2019-08-02 12:27 | Emergency (ER) | payer MEDICARE, OTHER ==
[2019-08-02 12:32] VITALS: BP 128/75
--- NOTE | 2019-08-02 12:43 | ER Document Report ---
ED Medical Screen (RME) - General Chief Complaint: Back Pain Stated Complaint: BACK PAIN Primary Care Provider: NANCY BOWERS MD [Primary Care Provider] - Follow up as needed TRAVEL OUTSIDE OF THE [place] IN LAST 30 DAYS: No - Related Data Allergies/Adverse Reactions: Penicillins Allergy (Mild, Verified 08/02/19 12:39) Hives codeine [Codeine] Allergy (Verified 08/02/19 12:39) Head Tightness Home Medications: Kidney pill Past Medical History - Social History Family history: None, Reviewed & Not Pertinent - Past Medical History Cardiac Medical History: Reports: Hx Coronary Artery Disease, Hx Hypercholesterolemia, Hx Hypertension Denies: Hx Heart Attack Pulmonary Medical History: Reports: Hx Bronchitis, Hx Pneumonia, Hx Tuberculosis Denies: Hx Asthma, Hx COPD Neurological Medical History: Reports: Hx Seizures - Psychogenic seizures. Denies: Hx Cerebrovascular Accident Endocrine Medical History: Reports: Hx Diabetes Mellitus Type 2 - borderline, Hx Hypothyroidism - 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 Renal/ Medical History: Denies: Hx Peritoneal Dialysis Musculoskeltal Medical History: Reports Hx Arthritis, Reports Hx Gout Psychiatric Medical History: Reports: Hx Anxiety Past Surgical History: Reports: Hx Adenoidectomy, Hx Gynecologic Surgery - Right ovary removed due to tumors then complete hysterectomy due to tumors, Hx Hysterectomy, Hx Thyroid Surgery - and thymus, Hx Tonsillectomy - adenoid, Hx Umbilical Hernia. Denies: Hx Pacemaker - Immunizations Immunizations up to date: Yes Hx Diphtheria, Pertussis, Tetanus Vaccination: Yes Physical Exam - Vital signs Vitals: Temp Pulse Resp BP Pulse Ox 97.9 F 63 16 128/75 H 100 08/02/19 12:31 08/02/19 12:31 08/02/19 12:31 08/02/19 12:31 08/02/19 12:31 Course - Vital Signs Vital signs: Temp Pulse Resp BP Pulse Ox 97.9 F 63 16 128/75 H 100 08/02/19 12:31 08/02/19 12:31 08/02/19 12:31 08/02/19 12:31 08/02/19 12:31 Doctor's Discharge - Discharge Clinical Impression: Bilateral low back pain Qualifiers: Chronicity: acute Sciatica presence: without sciatica Qualified Code(s): M54.5 - Low back pain Condition: Stable Disposition: HOME, SELF-CARE Instructions: Low Back Pain ([facility]) Additional Instructions: Rest, Ice Tylenol as needed Light stretches daily Strength exercises as able Moist heat and massage may help F/u with your PCP in 3-5 days for a recheck Consider consult(s) with Orthopedics/physical therapy for ongoing/worsening symptoms Return to the ED with any worsening symptoms and/or development of fever, headache, chest pain, palpitations, syncope, shortness of breath, trouble breathing, abdominal pain, n/v/d, blood in stool/urine, loss of control of bowel/bladder, urinary retention, muscle weakness/paralysis, saddle anesthesia, numbness/tingling, or other worsening symptoms that are concerning to you. Prescriptions: Prednisone [Deltasone 10 mg Tablet] 10 mg PO DAILY #18 tablet Lidocaine [Lidoderm 5% (700 mg) Transdermal Patch] 1 patch TP DAILY #10 adh..pa tch Forms: Elevated Blood Pressure Referrals: NANCY BOWERS MD [Primary Care Provider] - Follow up as needed [facility] [Provider Group] - Follow up as needed
[2019-08-02] MEDS ORDERED: ACETAMINOPHEN 325 MG TABLET PO ONE (12:46)
--- NOTE | 2019-08-02 12:48 | ER Document Report ---
HPI - HPI Pain Level: 5 Notes: Patient is a 68-year-old female with a history of hypertension, chronic kidney disease, gout, arthritis who presents complaining of bilateral lower back pain that started several days ago and has been relatively constant since then. Patient states that movement makes her pain worse. The pain does not radiate otherwise. It is described as a soreness. She is able to eat and drink without difficulty. She is urinating normally and having normal bowel movements. No injury. No h/o DM or spinal abscess. Denies any headache, fever, URI, sore throat, chest pain, palpitations, syncope, cough, shortness of breath, wheeze, dyspnea, abdominal pain, nausea/vomiting/diarrhea, urinary retention, dysuria, hematuria, loss of control of bowel or bladder, numbness/tingling, saddle anesthesia, muscle paralysis/weakness, or rash. - ROS Systems Reviewed and Negative: Yes All other systems reviewed and negative - REPRODUCTIVE Reproductive: DENIES: : Past Medical History - Social History Smoking Status: Never Smoker Family History: Reviewed & Not Pertinent, CAD, DM, Hyperlipidemia, Hypertension, Thyroid Disfunction Patient has suicidal ideation: No Patient has homicidal ideation: No - Past Medical History Cardiac Medical History: Reports: Hx Coronary Artery Disease, Hx Hypercholesterolemia, Hx Hypertension Denies: Hx Heart Attack Pulmonary Medical History: Reports: Hx Bronchitis, Hx Pneumonia, Hx Tuberculosis Denies: Hx Asthma, Hx COPD Neurological Medical History: Reports: Hx Seizures - Psychogenic seizures. 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 Denies: Hx Pacemaker - Immunizations Immunizations up to date: Yes Hx Diphtheria, Pertussis, Tetanus Vaccination: Yes Vertical Provider Document - CONSTITUTIONAL Agree With Documented VS: Yes Notes: PHYSICAL EXAMINATION: GENERAL: Well-appearing, well-nourished and in no acute distress. LUNGS: Breath sounds clear to auscultation bilaterally and equal. No wheezes rales or rhonchi. HEART: Regular rate and rhythm ABDOMEN: Soft, nontender, nondistended abdomen. No guarding, no rebound. Normal bowel sounds present. No CVA tenderness bilaterally. No pulsatile mass Musculoskeletal: LE's b/l: FROM to passive/active. Strength 5+/5. No deficits noted. No bony tenderness of extremities. Back: FROM to passive/active. Strength 5+/5. No vertebral point tenderness, stepoffs, or deformities. No other bony tenderness, erythema, swelling, or ecchymosis. SLR negative b/l. + mild tenderness to the L-paraspinal mm b/l. Mild spasming. No SI jt tenderness. No foot drop Extremities: No cyanosis, clubbing, or edema b/l. Peripheral pulses 2+. Capillary refill less than 2 seconds. NEUROLOGICAL: Normal speech, normal gait. Normal sensory, motor exams. Reflexes 2+ b/l. PSYCH: Normal mood, normal affect. SKIN: Warm, Dry, normal turgor, no rashes or lesions noted. - INFECTION CONTROL TRAVEL OUTSIDE OF THE [place] IN LAST 30 DAYS: No Course - Re-evaluation Re-evalutation: 08/02/19 12:46 Patient is an afebrile, well-hydrated, 68-year-old female who presents to the ED with bilateral low back pain. Vitals are acceptable. PE is otherwise unremarkable for any focal neurological deficits. Pt given tylenol. No supportive evidence for XR at this time (i.e. trauma, etc). She has no significant tachycardia, tachypnea, or hypoxia. She is nontoxic-appearing and is tolerating p.o. without difficulties. There are no signs of infection. No other red flag symptoms noted. No other labs or imaging warranted at this time based on H&P. Low suspicion for any meningitis, fracture, expanding/ruptured AAA, cauda equina syndrome, epidural mass lesion/abscess, herniated disc causing severe spinal stenosis, or other systemic infection at this time. Patient is aware that this condition can change from initial presentation and that she needs monitor symptoms closely for any acute changes. I will send her home with a prescription for lidoderm patch and steroid taper. Conservative measures otherwise for symptoms. Recheck with your PCM in 3-5 days. Consider consult with orthopedic/physical therapy. Return to the ED with any worsening/concerning symptoms otherwise as reviewed discharge. Patient is in agreement. - Vital Signs Vital signs: Temp Pulse Resp BP Pulse Ox 97.9 F 63 16 128/75 H 100 08/02/19 12:31 08/02/19 12:31 08/02/19 12:31 08/02/19 12:31 08/02/19 12:31 Discharge - Discharge Clinical Impression: Bilateral low back pain Qualifiers: Chronicity: acute Sciatica presence: without sciatica Qualified Code(s): M54.5 - Low back pain Condition: Stable Disposition: HOME, SELF-CARE Instructions: Low Back Pain ([facility]) Additional Instructions: Rest, Ice Tylenol as needed Light stretches daily Strength exercises as able Moist heat and massage may help F/u with your PCP in 3-5 days for a recheck Consider consult(s) with Orthopedics/physical therapy for ongoing/worsening symptoms Return to the ED with any worsening symptoms and/or development of fever, headache, chest pain, palpitations, syncope, shortness of breath, trouble breathing, abdominal pain, n/v/d, blood in stool/urine, loss of control of bowel/bladder, urinary retention, muscle weakness/paralysis, saddle anesthesia, numbness/tingling, or other worsening symptoms that are concerning to you. Prescriptions: Prednisone [Deltasone 10 mg Tablet] 10 mg PO DAILY #18 tablet Lidocaine [Lidoderm 5% (700 mg) Transdermal Patch] 1 patch TP DAILY #10 adh..patch Forms: Elevated Blood Pressure Referrals: [facility] ([facility] [Provider Group] - Follow up as needed NANCY BOWERS MD [Primary Care Provider] - Follow up as needed
== END 2019-08-02 12:51 | disposition home or self-care (01) ==
LOC: ER 12:27
DX: M54.5 Low back pain (principal); R25.2 Cramp and spasm; I10 Essential (primary) hypertension; I25.10 Atherosclerotic heart disease of native coronary artery without angina pectoris
CPT/HCPCS: 99283; A9270

== ENCOUNTER → 2019-09-30 | Outpatient (CLI) | payer MEDICARE, OTHER ==
[2019-09-30 15:00] LABS: ANION GAP 11 (5-19); BLOOD UREA NITROGEN 25 mg/dL (7-20); CALCIUM 9.3 mg/dL (8.4-10.2); CARBON DIOXIDE 31 mmol/L (22-30); CHLORIDE 98 mmol/L (98-107); GLUCOSE 115 mg/dL (75-110); POTASSIUM 3.5 mmol/L (3.6-5.0)
== END ==
LOC: OD 13:03
PROVIDERS: ATTEND Internal Medicine Nephrology
DX: I12.9 Hypertensive chronic kidney disease with stage 1 through stage 4 chronic kidney disease, or unspecified chronic kidney disease (principal); N18.3 Chronic kidney disease, stage 3 (moderate); E87.6 Hypokalemia
CPT/HCPCS: 36415; 80048

== ENCOUNTER → 2019-10-07 | Outpatient (CLI) | payer MEDICARE, OTHER ==
[2019-10-07 11:57] LABS: APPEARANCE,URINE CLEAR; BILIRUBIN,URINE NEGATIVE (NEGATIVE); COLOR,URINE STRAW; GLUCOSE, URINE NEGATIVE (NEGATIVE); KETONES,URINE NEGATIVE (NEGATIVE); PROTEIN,URINE NEGATIVE (NEGATIVE); URINE SPECIFIC GRAVITY 1.009; UROBILINOGEN,URINE NEGATIVE mg/dL (<2.0)
[2019-10-07 12:04] LABS: ANION GAP 9 (5-19); BLOOD UREA NITROGEN 26 mg/dL (7-20); CARBON DIOXIDE 30 mmol/L (22-30); CHLORIDE 101 mmol/L (98-107); GLUCOSE 105 mg/dL (75-110); POTASSIUM 4.3 mmol/L (3.6-5.0)
== END ==
LOC: OD 10:27
PROVIDERS: ATTEND Internal Medicine Nephrology
DX: I12.9 Hypertensive chronic kidney disease with stage 1 through stage 4 chronic kidney disease, or unspecified chronic kidney disease (principal); N18.3 Chronic kidney disease, stage 3 (moderate); E87.6 Hypokalemia; R73.03 Prediabetes
CPT/HCPCS: 36415; 80048; 81001

== ENCOUNTER 2019-10-11 15:10 | Emergency (ER) | payer MEDICARE, OTHER ==
--- NOTE | 2019-10-11 17:33 | ER Document Report ---
ED Medical Screen (RME) - General Chief Complaint: Abdominal Pain Stated Complaint: ABDOMINAL PAIN Time Seen by Provider: 10/11/19 17:29 Primary Care Provider: NANCY BOWERS MD [Primary Care Provider] - Follow up as needed Mode of Arrival: Ambulatory Information source: Patient Notes: 69-year-old female presents to ED for lower abdominal pain since Monday. She states she is having soft stools and her pain is in her lower abdomen abdomen and her rectal area. She states it is not diarrhea it is just soft stools. She states she is using colchicine for her gout 1 tablet a day. She states she does not have diarrhea but she is having extreme pain in her stomach. She states she has been nauseated but no vomiting. Technology Engineer told her that she has diverticulosis and she is worried she has diverticulitis I have greeted and performed a rapid initial assessment of this patient. A comprehensive ED assessment and evaluation of the patient, analysis of test results and completion of medical decision making process will be conducted by an additional ED providers. TRAVEL OUTSIDE OF THE [place] IN LAST 30 DAYS: No - Related Data Allergies/Adverse Reactions: Penicillins Allergy (Mild, Verified 08/02/19 12:39) Hives codeine [Codeine] Allergy (Verified 08/02/19 12:39) Head Tightness Past Medical History - Social History Family history: None, Reviewed & Not Pertinent - Past Medical History Cardiac Medical History: Reports: Hx Coronary Artery Disease, Hx Hypercholesterolemia, Hx Hypertension Denies: Hx Heart Attack Pulmonary Medical History: Reports: Hx Bronchitis, Hx Pneumonia, Hx Tuberculosis Denies: Hx Asthma, Hx COPD Neurological Medical History: Reports: Hx Seizures - Psychogenic seizures. Denies: Hx Cerebrovascular Accident Endocrine Medical History: Reports: Hx Diabetes Mellitus Type 2 - borderline, Hx Hypothyroidism - 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 Renal/ Medical History: Denies: Hx Peritoneal Dialysis Musculoskeltal Medical History: Reports Hx Arthritis, Reports Hx Gout Psychiatric Medical History: Reports: Hx Anxiety Past Surgical History: Reports: Hx Adenoidectomy, Hx Gynecologic Surgery - Right ovary removed due to tumors then complete hysterectomy due to tumors, Hx Hysterectomy, Hx Thyroid Surgery - and thymus, Hx Tonsillectomy - adenoid, Hx Umbilical Hernia. Denies: Hx Pacemaker - Immunizations Immunizations up to date: Yes Hx Diphtheria, Pertussis, Tetanus Vaccination: Yes Physical Exam - Vital signs Vitals: Temp Pulse Resp BP Pulse Ox 98.8 F 82 20 115/63 96 10/11/19 15:46 10/11/19 15:46 10/11/19 15:46 10/11/19 15:46 10/11/19 15:46 Course - Vital Signs Vital signs: Temp Pulse Resp BP Pulse Ox 98.8 F 82 20 115/63 96 10/11/19 15:46 10/11/19 15:46 10/11/19 15:46 10/11/19 15:46 10/11/19 15:46 Doctor's Discharge - Discharge Referrals: NANCY BOWERS MD [Primary Care Provider] - Follow up as needed
[2019-10-11 18:31] LABS: ABSOLUTE EOSINOPHILS # (AUTO) 0.1 10^3/uL (0.0-0.6); ABSOLUTE LYMPHOCYTES (AUTO) 1.5 10^3/uL (0.5-4.7); ABSOLUTE MONOCYTES (AUTO) 0.6 10^3/uL (0.1-1.4); ABSOLUTE NEUT (AUTO) 3.9 10^3/uL (1.7-8.2); BASOPHILS % (AUTO) 0.4 % (0-2); EOSINOPHILS % (AUTO) 1.6 % (0-6); HEMATOCRIT 36.2 % (36.0-47.0); HEMOGLOBIN 12.2 g/dL (12.0-15.5); LYMPHOCYTES % (AUTO) 24.6 % (13-45); MEAN CORPUSCULAR HEMOGLOBIN 28.7 pg (27.0-33.4); MEAN CORPUSCULAR HGB CONC 33.7 g/dL (32.0-36.0); MEAN CORPUSCULAR VOLUME 85 fl (80-97); MONOCYTES % (AUTO) 10.2 % (3-13); PLATELET COUNT 223 10^3/uL (150-450); RED BLOOD COUNT 4.25 10^6/uL (3.72-5.28); RED CELL DISTRIBUTION WIDTH 14.8 % (11.5-14.0); SEGMENTED NEUTROPHILS % (AUTO) 63.2 % (42-78); TOTAL CELLS COUNTED % (AUTO) 100 %; WHITE BLOOD COUNT 6.2 10^3/uL (4.0-10.5)
[2019-10-11 18:42] LABS: ALBUMIN 4.3 g/dL (3.5-5.0); ALKALINE PHOSPHATASE 53 U/L (38-126); ANION GAP 12 (5-19); ASPARTATE AMINO TRANSFERASE 19 U/L (14-36); BILIRUBIN,DIRECT 0.2 mg/dL (0.0-0.4); BILIRUBIN,TOTAL 0.6 mg/dL (0.2-1.3); BLOOD UREA NITROGEN 26 mg/dL (7-20); CALCIUM 9.2 mg/dL (8.4-10.2); CARBON DIOXIDE 29 mmol/L (22-30); CHLORIDE 99 mmol/L (98-107); GLUCOSE 105 mg/dL (75-110); POTASSIUM 3.8 mmol/L (3.6-5.0); TOTAL PROTEIN 7.6 g/dL (6.3-8.2)
[2019-10-11 18:43] LABS: APPEARANCE,URINE SLIGHTLY-CLOUDY; BILIRUBIN,URINE NEGATIVE (NEGATIVE); COLOR,URINE YELLOW; GLUCOSE, URINE NEGATIVE (NEGATIVE); KETONES,URINE NEGATIVE (NEGATIVE); PROTEIN,URINE NEGATIVE (NEGATIVE); URINE SPECIFIC GRAVITY 1.015; UROBILINOGEN,URINE NEGATIVE mg/dL (<2.0)
[2019-10-11] MEDS ORDERED: MORPHINE SULFATE 10 MG/ML INJ IV ONE (20:47)
--- NOTE | 2019-10-11 20:56 | ER Document Report ---
ED General - General Chief Complaint: Abdominal Pain Stated Complaint: ABDOMINAL PAIN Time Seen by Provider: 10/11/19 17:29 Primary Care Provider: NANCY BOWERS MD [ACTIVE STAFF] - Follow up as needed Mode of Arrival: Ambulatory Notes: 69-year-old female with history of diverticulosis presents with lower abdominal pain, nausea, soft stools since Monday. Patient states it hurts worse when she goes to the bathroom. Patient also states she has some mild rectal pain. Denies any blood in her stool. Patient denies any vomiting, fever, chills, chest pain, shortness of breath. Patient states she has had diverticulitis in the past and thinks that this may be what is causing it. Patient also states that her kidney doctor recently put her on potassium. TRAVEL OUTSIDE OF THE [place] IN LAST 30 DAYS: No - Related Data Allergies/Adverse Reactions: Penicillins Allergy (Mild, Verified 08/02/19 12:39) Hives codeine [Codeine] Allergy (Verified 08/02/19 12:39) Head Tightness Past Medical History - General Information source: Patient - Social History Smoking Status: Unknown if Ever Smoked Frequency of alcohol use: None Drug Abuse: None Family History: Reviewed & Not Pertinent, CAD, DM, Hyperlipidemia, Hypertension, Thyroid Disfunction Patient has suicidal ideation: No Patient has homicidal ideation: No - Past Medical History Cardiac Medical History: Reports: Hx Coronary Artery Disease, Hx Hypercholesterolemia, Hx Hypertension Denies: Hx Heart Attack Pulmonary Medical History: Reports: Hx Bronchitis, Hx Pneumonia, Hx Tuberculosis Denies: Hx Asthma, Hx COPD Neurological Medical History: Reports: Hx Seizures - Psychogenic seizures. 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 Denies: Hx Pacemaker - Immunizations Immunizations up to date: Yes Hx Diphtheria, Pertussis, Tetanus Vaccination: Yes Review of Systems - Review of Systems Notes: Constitutional: Negative for fever. HENT: Negative for sore throat. Eyes: Negative for visual changes. Cardiovascular: Negative for chest pain. Respiratory: Negative for shortness of breath. Gastrointestinal: Positive for abdominal pain, nausea, soft stools. Genitourinary: Negative for dysuria. Musculoskeletal: Negative for back pain. Skin: Negative for rash. Neurological: Negative for headaches, weakness or numbness. 10 point ROS negative except as marked above and in HPI. Physical Exam - Vital signs Vitals: Temp Pulse Resp BP Pulse Ox 98.8 F 82 20 115/63 96 10/11/19 15:46 10/11/19 15:46 10/11/19 15:46 10/11/19 15:46 10/11/19 15:46 - Notes Notes: GENERAL: Well-appearing, well-nourished and in no acute distress. HEAD: Atraumatic, normocephalic. EYES: Extraocular movements intact, sclera anicteric, conjunctiva are normal. NECK: Normal range of motion, supple without lymphadenopathy or JVD. LUNGS: Breath sounds clear to auscultation bilaterally and equal. No wheezes rales or rhonchi. HEART: Regular rate and rhythm without murmurs, rubs or gallops. ABDOMEN: Soft, tenderness inferior to the umbilicus and across lower abdomen. No guarding, no rebound. No masses appreciated. No CVA tenderness. RECTAL: Small hemorrhoid that is not inflamed. No gross blood. Fecal hemoccult negative. Rectal tone intact. No tenderness. EXTREMITIES: Normal range of motion, no pitting or edema. No clubbing or cyanosis. NEUROLOGICAL: Cranial nerves II through XII grossly intact. Normal speech, normal gait. PSYCH: Normal mood, normal affect. SKIN: Warm, Dry, normal turgor, no rashes or lesions noted. Course - Re-evaluation Re-evalutation: 10/11/19 nontoxic, well-appearing 69-year-old female presents with lower abdominal pain that is worse with using the bathroom. Associated nausea and soft stools. No blood in stool. No fever. Patient is non-tachycardic, afebrile, non-hypoxic. Abdomen soft tenderness to lower abdomen without guarding or rebound. Nonsurgical abdomen. No leukocytosis. Labs are lee ann ssuring. Patient does have CKD which is at baseline. UA does not show any urinary tract infection. Stool shows no WBCs. CT abdomen/pelvis with oral contrast ordered. 10/11/19 23:59 CT abdomen/pelvis shows acute sigmoid diverticulitis. Will treat pt with antibiotics and given pt close follow up with PCP. Discussed all results with pt. Strict return precautions given. Pt voices understanding and agrees with plan of care. - Vital Signs Vital signs: Temp Pulse Resp BP Pulse Ox 98.8 F 82 20 115/63 96 10/11/19 15:46 10/11/19 15:46 10/11/19 15:46 10/11/19 15:46 10/11/19 15:46 - Laboratory Result Diagrams: 10/11/19 17:53 10/11/19 17:53 Laboratory results interpreted by me: 10/11/19 10/11/19 17:53 17:53 RDW 14.8 H BUN 26 H Creatinine 1.68 H Est GFR ( Amer) 37 L Est GFR (MDRD) Non-Af 30 L Discharge - Discharge Clinical Impression: Diverticulitis Condition: Stable Disposition: HOME, SELF-CARE Instructions: Diverticulitis ([facility]) Additional Instructions: Your CT shows diverticulitis. Please take antibiotics as prescribed. Please finish all doses even if you feel better. Please take pain medication as prescribed. Do not drink or drive while taking as it may make you drowsy. Follow-up with your primary care doctor in 3 to 5 days. Return immediately to the ER if you start having any worsening symptoms, including worsening abdominal pain, vomiting not controlled by medication, fever, chest pain, shortness of breath, blood in stool, or any other symptoms that are concerning to you. Prescriptions: Ciprofloxacin HCl [Cipro 500 mg Tablet] 500 mg PO BID #14 tablet Metronidazole [Flagyl 500 mg Tablet] 500 mg PO Q8 #21 tablet Referrals: NANCY BOWERS MD [ACTIVE STAFF] - Follow up as needed
[2019-10-11] MEDS ORDERED: ACETAMINOPHEN 325 MG TABLET PO ONE (21:26)
--- NOTE | 2019-10-11 23:43 | RADIOLOGY REPORT (SQ) ---
CT abdomen and pelvis without contrast on 10/11/2019 at 11:18 PM CLINICAL INDICATION: Lower abdominal pain, rectal pain TECHNIQUE: Multiple axial images are obtained throughout the abdomen and pelvis without the administration of IV contrast, oral contrast was administered. This exam was performed according to our departmental dose-optimization program, which includes automated exposure control, adjustment of the mA and/or kV according to patient size and/or use of iterative reconstruction technique. Total DLP is 513.52 mGy*cm. COMPARISON: None FINDINGS: Abdomen: The lung bases are clear. There are no renal or ureteral stones and no hydronephrosis. The unenhanced solid abdominal organs are unremarkable. Vascular calcifications are noted. There is no abdominal adenopathy. There is no free fluid or free air within the abdomen. There is diverticulosis. The abdominal portion of the GI tract is otherwise unremarkable. Pelvis: There is fat stranding around the sigmoid colon with some wall thickening in a region of multiple diverticula consistent with acute sigmoid colon diverticulitis. This extends adjacent to the rectum and would account for the patient's pain. No evidence of abscess or perforation is noted. No free fluid is noted in the pelvis. There is no pelvic adenopathy. The pelvic portion of the GI tract is otherwise unremarkable. Degenerative changes are noted in the spine. There is grade 1 spondylolisthesis at L4-5 and L5-S1 secondary to degenerative facet disease. IMPRESSION: 1. Findings consistent with acute sigmoid colon diverticulitis without evidence of abscess or perforation. 2. No other acute abnormality.
[2019-10-12] MEDS ORDERED: HYDROCODONE/ACETAMINOPHEN 5-325 MG (6 TAB/ER DISP) PO PRN (00:08)
[2019-10-12 00:37] VITALS: BP 111/56
== END 2019-10-12 00:39 | disposition home or self-care (01) ==
LOC: ER 15:10
DX: K57.32 Diverticulitis of large intestine without perforation or abscess without bleeding (principal); R10.30 Lower abdominal pain, unspecified; R11.0 Nausea; K64.9 Unspecified hemorrhoids; R19.4 Change in bowel habit; I12.9 Hypertensive chronic kidney disease with stage 1 through stage 4 chronic kidney disease, or unspecified chronic kidney disease; N18.9 Chronic kidney disease, unspecified; I25.10 Atherosclerotic heart disease of native coronary artery without angina pectoris; Z88.0 Allergy status to penicillin; Z88.6 Allergy status to analgesic agent; Z88.5 Allergy status to narcotic agent
CPT/HCPCS: 99284; 36415; 87045; 89055; 87205; 83605; 85025; 80053; 81001; 74176; A9270

== ENCOUNTER → 2019-11-06 | Outpatient (CLI) | payer MEDICARE, OTHER ==
--- NOTE | 2019-11-06 12:56 | RADIOLOGY REPORT (SQ) ---
EXAM DESCRIPTION: FOOT BILATERAL 3 VIEWS COMPLETED DATE/TIME: 11/06/2019 12:45 pm REASON FOR STUDY: M10.9 GOUT, UNSPECIFIED M10.9 GOUT, UNSPECIFIED COMPARISON: None. NUMBER OF VIEWS: Three views. TECHNIQUE: AP, lateral and oblique without weight bearing radiographic images acquired of the left a nd right foot. LIMITATIONS: None. FINDINGS: MINERALIZATION: Normal. BONES: No acute fracture or dislocation. No worrisome bone lesions. No significant osteophytes. JOINTS: Degenerative changes in the right and left 1st metatarsal phalangeal joints. No conventional radiographic changes to suggest scalp. SOFT TISSUES: There is calcification along the Achilles tendon on the left. OTHER: No other significant finding. IMPRESSION: No acute findings. No conventional radiographic evidence of gout. TECHNICAL DOCUMENTATION: JOB ID: [id number] 2010 [employer]- All Rights Reserved Reading location - IP/workstation name: [email or web address]
== END ==
LOC: RAD 12:26
PROVIDERS: ATTEND Obstetrics & Gynecology
DX: M10.9 Gout, unspecified (principal)

== ENCOUNTER → 2019-11-18 | Outpatient (CLI) | payer MEDICARE, OTHER ==
--- NOTE | 2019-11-19 17:43 | WOMENS IMAGING REPORT ---
EXAM DESCRIPTION: 3D SCREENING MAMMO BILAT COMPLETED DATE/TIME: 11/18/2019 11:34 am REASON FOR STUDY: Z12.31 SCREENING MAMMO Z12.31 ENCNTR SCREEN MAMMOGRAM FOR MALIGNANT NEOPLASM OF B RE COMPARISON: 2015 EXAM PARAMETERS: Standard craniocaudal and mediolateral oblique views of each breast recorded using digital acquisition and breast tomosynthesis. Read with the assistance of CAD. .[facility] - R2 Computerized Table Cutter Version 9.2 LIMITATIONS: None. FINDINGS: Findings present which are benign by mammographic criteria. No suspicious masses, calcific ations or architectural distortion. Pertinent benign findings: Benign bilateral breast calcifications. Benign mammographic findings may include one or more of the following: Smooth masses, popcorn/rim/coa rse calcifications, asymmetries, post-procedure changes, and lesions with long-standing stability. IMPRESSION: BENIGN MAMMOGRAPHIC FINDINGS. BIRADS 2 BREAST DENSITY: c. The breasts are heterogeneously dense, which may obscure small masses. BIRAD: ASSESSMENT: 2 BENIGN FINDING(S) RECOMMENDATION: ROUTINE SCREENING Please continue yearly bilateral screening mammography/tomosynthesis in November 2020 COMMENT: The patient has been notified of the results by letter per [place] requirements. Additional no tification policies are in place for contacting patient with suspicious or incomplete findings. Quality ID #[id number]: The [employer] recommends an annual screening mammogram for women aged 40 years or over. This facility utilizes a reminder system to ensure that all patients receive reminder letters, and/or direct phone calls for appointments. This includes reminders for routine scr eening mammograms, diagnostic mammograms, or other Breast Imaging Interventions when appropriate. Th is patient will be placed in the appropriate reminder system. TECHNICAL DOCUMENTATION: FINDING NUMBER: (1) ASSESSMENT: (1) JOB ID: [id number] 2010 [employer]- All Rights Reserved Reading location - IP/workstation name: [email or web address]
== END ==
LOC: WI 11:15
PROVIDERS: ATTEND Obstetrics & Gynecology
DX: Z12.31 Encounter for screening mammogram for malignant neoplasm of breast (principal)
CPT/HCPCS: 77063; 77067

== ENCOUNTER → 2019-12-30 | Outpatient (CLI) | payer MEDICARE, OTHER ==
[2019-12-30 16:20] LABS: APPEARANCE,URINE CLEAR; BILIRUBIN,URINE NEGATIVE (NEGATIVE); COLOR,URINE YELLOW; GLUCOSE, URINE NEGATIVE (NEGATIVE); KETONES,URINE NEGATIVE (NEGATIVE); LEUKOCYTE ESTERASE,URINE NEGATIVE (NEGATIVE); NITRITE,URINE NEGATIVE (NEGATIVE); PROTEIN,URINE NEGATIVE (NEGATIVE); URINE SPECIFIC GRAVITY 1.016; UROBILINOGEN,URINE NEGATIVE mg/dL (<2.0)
[2019-12-30 16:22] LABS: ABSOLUTE EOSINOPHILS # (AUTO) 0.1 10^3/uL (0.0-0.6); ABSOLUTE LYMPHOCYTES (AUTO) 1.9 10^3/uL (0.5-4.7); ABSOLUTE MONOCYTES (AUTO) 0.5 10^3/uL (0.1-1.4); ABSOLUTE NEUT (AUTO) 1.9 10^3/uL (1.7-8.2); BASOPHILS % (AUTO) 0.7 % (0-2); EOSINOPHILS % (AUTO) 2.7 % (0-6); HEMATOCRIT 36.8 % (36.0-47.0); HEMOGLOBIN 12.7 g/dL (12.0-15.5); MEAN CORPUSCULAR HGB CONC 34.5 g/dL (32.0-36.0); MEAN CORPUSCULAR VOLUME 84 fl (80-97); MONOCYTES % (AUTO) 10.8 % (3-13); PLATELET COUNT 191 10^3/uL (150-450); RED BLOOD COUNT 4.38 10^6/uL (3.72-5.28); RED CELL DISTRIBUTION WIDTH 15.7 % (11.5-14.0); SEGMENTED NEUTROPHILS % (AUTO) 42.8 % (42-78); TOTAL CELLS COUNTED % (AUTO) 100 %; WHITE BLOOD COUNT 4.3 10^3/uL (4.0-10.5)
[2019-12-30 16:42] LABS: ALBUMIN 4.3 g/dL (3.5-5.0); BLOOD UREA NITROGEN 24 mg/dL (7-20); CALCIUM 9.1 mg/dL (8.4-10.2); GLUCOSE 95 mg/dL (75-110); PHOSPHORUS 3.7 mg/dL (2.5-4.5); POTASSIUM 3.6 mmol/L (3.6-5.0); URIC ACID 10.5 mg/dL (2.5-7.5)
[2019-12-30 17:13] LABS: CARBON DIOXIDE 33 mmol/L (22-30); CHLORIDE 101 mmol/L (98-107)
[2019-12-30 17:17] LABS: ANION GAP 6 (5-19)
== END ==
LOC: OD 15:39
PROVIDERS: ATTEND Internal Medicine Nephrology
DX: I12.9 Hypertensive chronic kidney disease with stage 1 through stage 4 chronic kidney disease, or unspecified chronic kidney disease (principal); N18.3 Chronic kidney disease, stage 3 (moderate); R73.03 Prediabetes; E87.6 Hypokalemia
CPT/HCPCS: 36415; 80069; 81001; 82043; 82306; 82570; 83970; 84550; 85025

== ENCOUNTER 2020-06-02 13:20 | Emergency (ER) | payer MEDICARE ==
[2020-06-02 13:30] VITALS: BP 175/102
== END 2020-06-02 15:20 | disposition left against medical advice (07) ==
LOC: ER 13:20
DX: Z53.21 Procedure and treatment not carried out due to patient leaving prior to being seen by health care provider (principal)

== ENCOUNTER → 2020-08-10 | Outpatient (CLI) | payer MEDICARE ==
[2020-08-10 13:38] LABS: ANION GAP 10 (5-19); BLOOD UREA NITROGEN 20 mg/dL (7-20); CALCIUM 9.2 mg/dL (8.4-10.2); CARBON DIOXIDE 31 mmol/L (22-30); CHLORIDE 98 mmol/L (98-107); GLUCOSE 106 mg/dL (75-110); POTASSIUM 3.6 mmol/L (3.6-5.0); URIC ACID 8.5 mg/dL (2.5-7.5)
== END ==
LOC: OD 11:51
PROVIDERS: ATTEND Internal Medicine Nephrology
DX: N18.30 Chronic kidney disease, stage 3 unspecified (principal); E87.6 Hypokalemia; M10.00 Idiopathic gout, unspecified site
CPT/HCPCS: 36415; 80048; 82043; 82570; 84550